=== PATIENT | male | born 1940 | race Hispanic/Latino ===

== ENCOUNTER 2018-06-23 14:32 | Inpatient (IN) | payer OTHER, MEDICARE ==
[2018-06-23] MEDS ORDERED: TDAP Vaccine 0.5 mL Syr IM ONE (14:54)
--- NOTE | 2018-06-23 15:02 | ED PDOC ---
Arrival/HPI - General Chief Complaint: Trauma Time Seen by Provider: 06/23/18 14:53 Historian: Patient - History of Present Illness Time/Duration: Prior to Arrival Symptom Onset: Sudden Context: Walking Associated Symptoms (Text): 77yo male, brought to Emergency room for evaluation after he fell, sustaining facial injuries. Patient states he was in the hospital getting cardiac therapy, which he states went well; patient reports he was walking outside and felt as if he was "staggering", lost his balance, and fell. Patient denies any chest pain, shortness of breath, lightheaded, weakness, numbness, tingling, or pain. PMD: Unsure Tetanus vaccination not up to date. Past Medical History - Provider Review Nursing Documentation Reviewed: Yes - Infectious Disease Hx of Infectious Diseases: None - Tetanus Immunization Tetanus Immunization: Up to Date - Cardiac Hx Cardiac Disorders: Yes Hx Atrial Fibrillation: Yes Hx Cardiac Arrhythmia: Yes Hx PR: Yes Hx Hypertension: Yes - Pulmonary Hx Respiratory Disorders: No - Neurological Hx Neurological Disorder: No - HEENT Hx HEENT Disorder: Yes Hx Cataracts: Yes - Renal Hx Renal Disorder: No - Endocrine/Metabolic Hx Endocrine Disorders: No - Hematological/Oncological Hx Blood Disorders: No - Integumentary Hx Dermatological Disorder: No - Musculoskeletal/Rheumatological Hx Musculoskeletal Disorders: Yes Hx Arthritis: Yes Hx Rheumatoid Arthritis: Yes - Gastrointestinal Hx Gastrointestinal Disorders: Yes Hx Diverticulitis: Yes - Genitourinary/Gynecological Hx Genitourinary Disorders: No - Psychiatric Hx Psychophysiologic Disorder: No Hx Substance Use: No - Past Surgical History Past Surgical History: No Previous - Surgical History Hx Cardiac Catheterization: Yes Hx Coronary Stent: Yes Hx Open Heart Surgery: Yes - Anesthesia Hx Anesthesia Reactions: No Hx Malignant Hyperthermia: No - Suicidal Assessment Feels Threatened In Home Enviroment: No Family/Social History - Physician Review Nursing Documentation Reviewed: Yes Family/Social History: No Known Family HX Smoking Status: Former Smoker Hx Alcohol Use: No Hx Substance Use: No Hx Substance Use Treatment: No Allergies/Home Meds Allergies/Adverse Reactions: Allergies No Known Allergies Allergy (Verified 06/23/18 14:47) Home Medications: Home Meds Medication Instructions Recorded Confirmed Atorvastatin [Lipitor] 10 mg PO DAILY 06/23/18 06/23/18 Folic Acid 1 mg PO DAILY 06/23/18 06/23/18 Gabapentin [Neurontin] 300 mg PO TID 06/23/18 06/23/18 Levocetirizine Dihydrochloride 5 mg PO DAILY 06/23/18 06/23/18 [Xyzal] Methotrexate 4 tab PO Q2W 06/23/18 06/23/18 Pantoprazole Sodium [Protonix] 40 mg PO DAILY 06/23/18 06/23/18 Review of Systems - Physician Review All systems were reviewed & negative as marked: Yes - Review of Systems Eyes: absent: Vision Changes, Photophobia ENT: Other (facial injury; missing teeth) Respiratory: absent: SOB Cardiovascular: absent: Chest Pain Gastrointestinal: absent: Abdominal Pain, Vomiting Skin: Other (abrasions) Neurological: Other (head injury). absent: Focal Weakness Physical Exam Vital Signs Reviewed: Yes Vital Signs Temp Pulse Resp BP Pulse Ox 06/23/18 18:22 98 F 93 H 20 198/92 H 95 06/23/18 18:13 98 F 93 H 20 191/83 H 95 06/23/18 18:12 99 H 194/107 H 06/23/18 18:01 99 H 20 194/107 H 94 L 06/23/18 17:46 99 H 188/110 H 06/23/18 17:25 98 F 113 H 18 188/110 H 95 06/23/18 14:33 97.8 F 110 H 20 201/103 H 95 Temperature: Afebrile Blood Pressure: Normal Pulse: Regular Respiratory Rate: Normal Appearance: Positive for: Uncomfortable Pain Distress: Moderate Mental Status: Positive for: Alert and Oriented X 3 - Systems Exam Head: Present: Normocephalic Pupils: Present: PERRL Extroacular Muscles: Present: EOMI Conjunctiva: Present: Normal Ears: Present: NORMAL TM Mouth: Present: Moist Mucous Membranes, Other (fractured upper dentures with R upper gum swelling). No: Normal Lips (anterior lip swelling) Pharnyx: No: ERYTHEMA, EXUDATE, TONSILS ENLARGED Nose (External): Present: Abrasion (stellate abrasion to bridge of nose) Nose (Internal): Present: Epistaxis. No: No Active Bleeding Neck: Present: Other (in c-collar) Respiratory/Chest: Present: Clear to Auscultation, Good Air Exchange. No: Respiratory Distress, Accessory Muscle Use Cardiovascular: Present: Regular Rate and Rhythm, Normal S1, S2. No: Murmurs Abdomen: No: Tenderness, Distention, Peritoneal Signs Upper Extremity: Present: Normal Inspection, Other (multiple abrasions noted to bilateral upper extremities). No: Cyanosis, Edema Lower Extremity: Present: Normal Inspection, NORMAL PULSES, Normal ROM (FROM bilateral lower extremities), Other (non-tender hips). No: Edema Neurological: Present: GCS=15, CN II-XII Intact, Speech Normal Skin: Present: Abrasion (multiple abrasions to bilateral upper extremities) Psychiatric: Present: Alert, Oriented x 3, Normal Insight, Normal Concentration Medical Decision Making ED Course and Treatment: Impression: Multiple injuries s/p fall Plan: -- CT Head w/o contrast -- CT C-Spine w/o contrast -- CT Maxillofacial w/o contrast -- Chest X-Ray -- TDAP Booster 0.5ml IM -- Labs -- Reassess and disposition Prior Visits: Notes and results from previous visits were reviewed. Patient was last seen in the Emergency department in 2017, and was discharged home. Progress Notes: 06/23/18 16:23 CT C-spine: VERTEBRAE: No fracture. Normal alignment. No destructive bony lesion. DISCS/SPINAL CANAL/NEURAL FORAMINA: No significant central canal or neural foraminal stenosis. Degenerative changes primarily disc space narrowing C2-3 C5-6 and C6-7. PARASPINAL SOFT TISSUES: Unremarkable. OTHER FINDINGS: Extensive soft tissue fullness, prominence in the nasopharynx consistent with facial trauma a which is incompletely visualized on the current study. Small air-fluid levels in the sphenoid air cells. Incompletely visualized ethmoid air cell disease. IMPRESSION: No acute findings related to/accounting for the clinical presentation. Additional benign and/or incidental findings described above. 06/23/18 16:31 PROCEDURE: CT MAXILLOFACIAL BONES WITHOUT CONTRAST NASAL BONES: Bilateral nasal bone fractures. Fractures through the bony nasal septum. Associated soft tissue swelling about the nose and nasal turbinates are filled with fluid and debris. ORBITS: Unremarkable. PARANASAL SINUSES/ MASTOIDS: Air-fluid levels in both maxillary sinuses and likely related to recent trauma. Air-fluid levels in the sphenoid air cells identified. Ethmoid air cell disease also presumed to be the sequela of recent trauma. Disruption of the medial wall of the right maxillary sinus noted. In the absence of sinus surgery this is presumed to be posttraumatic. MAXILLA: Unremarkable. MANDIBLE/ TEMPOROMANDIBULAR JOINTS: Unremarkable. SKULL BASE: Unremarkable. TEMPORAL BONES: Middle ears and mastoid grossly unremarkable. OTHER FINDINGS: Blood, fluid identified in the nasopharynx and oropharynx. IMPRESSION: Comminuted fractures through the nasal bones bilaterally. Fracture line identified with the bony nasal septum. Blood fluid levels identified in the maxillary sinuses bilaterally, possible fracture through the medial wall of the right maxillary sinus. No abnormalities with respect to the orbits or globes/retro Conal structures. Extraocular muscles are unremarkable. 06/23/18 16:48 CT Head w/o contrast FINDINGS: HEMORRHAGE: No intracranial hemorrhage. BRAIN: No mass effect or edema. Cortical and cerebellar atrophy, periventricular small vessel disease. Incidental finding(s): Focal area of increased attenuation in the right frontoparietal gyrus likely benign and dystrophic. VENTRICLES: Unremarkable. No hydrocephalus. CALVARIUM: Unremarkable. PARANASAL SINUSES: Unremarkable as visualized. No significant inflammatory changes. MASTOID AIR CELLS: Unremarkable as visualized. No inflammatory changes. OTHER FINDINGS: Nasopharyngeal and facial findings described in greater detail in the CT of the maxillofacial region. IMPRESSION: No acute intracranial abnormalities. No significant findings to account for the clinical presentation. Chest X-ray: FINDINGS: LUNGS: No active pulmonary disease. PLEURA: No significant pleural effusion identified, no pneumothorax apparent. CARDIOVASCULAR: No radiographic findings to suggest acute or significant cardiovascular disease. OSSEOUS STRUCTURES: No significant abnormalities. VISUALIZED UPPER ABDOMEN: Normal. OTHER FINDINGS: None. IMPRESSION: No active disease. No significant interval change compared to the prior examination(s). 06/23/18 16:49 Case discussed with ENT corporate communications associate, who recommends Afrin and packing if bleeding continues. Patient continues to deny pain. Case discussed with Dr. Apodaca who is requesting admission. 06/23/18 17:21 B/l nasal packing placed for b/l epistaxis nd pressure dressing to nasal abrasion. No laceration to repair. Hemostasis achieved. BP medication given and tetanus updated. 06/23/18 17:37 Continues to refuse pain medication - Lab Interpretations Lab Results: 06/23/18 15:00 06/23/18 15:00 Lab Results 06/23/18 15:00: Sodium 135, Potassium 4.2, Chloride 97 L, Carbon Dioxide 26, Anion Gap 16, BUN 16, Creatinine 0.8, Est GFR ( Amer) > 60, Est GFR (Non- Af Amer) > 60, Random Glucose 106, Calcium 8.4, Total Bilirubin 2.2 H, AST 60 H , ALT 33, Alkaline Phosphatase 141 H, Troponin I < 0.01, Total Protein 6.7, Albumin 3.5, Globulin 3.1, Albumin/Globulin Ratio 1.1 06/23/18 15:00: PT 16.6 H, INR 1.45, APTT 35.7 06/23/18 15:00: WBC 11.2 H, RBC 3.34 L, Hgb 11.1 L, Hct 32.9 L, MCV 98.5, MCH 33.2, MCHC 33.7, RDW 17.0 H, Plt Count 115 L, MPV 10.0, Gran % 37.5 L, Lymph % ( Auto) 53.9 H, [place] % (Auto) 6.5 H, Eos % (Auto) 1.8, Baso % (Auto) 0.3, Gran # 4.19, Lymph # (Auto) 6.0 H, [place] # (Auto) 0.7 H, Eos # (Auto) 0.2, Baso # (Auto ) 0.03 - RAD Interpretation Radiology Orders: 06/23/18 14:53 CERVICAL SPINE W/O CONTRAST [CT] Stat HEAD W/O CONTRAST [CT] Stat MAXILLOFACIAL W/O CONTRAST [CT] Stat 06/23/18 14:54 CHEST PORTABLE [RAD] Stat - Medication Orders Current Medication Orders: Clonidine HCl (Catapres) 0.2 mg PO TID PRN PRN Reason: for SBP >160 Last Admin: 06/23/18 19:37 Dose: 0.2 mg MAR Pulse and Blood Pressure Document 06/23/18 19:37 RDS (Rec: 06/23/18 19:37 RDS [facility] [id number]) Pulse Pulse Rate (60-90) 94 Blood Pressure Blood Pressure (100/60-150/90) 179/85 Gabapentin (Neurontin) 300 mg PO TID BRYAN PRN Reason: Protocol Metoprolol Succinate (Toprol Xl) 50 mg PO BRK [facility] Last Admin: 06/23/18 19:37 Dose: 50 mg MAR Pulse and Blood Pressure Document 06/23/18 19:37 RDS (Rec: 06/23/18 19:37 RDS [facility] [id number]) Pulse Pulse Rate (60-90) 94 Blood Pressure Blood Pressure (100/60-150/90) 179/85 Discontinued Medications Amoxicillin/Clavulanate Potassium (Augmentin 875 Mg-125 Mg Tab) 1 tab PO STAT STA PRN Reason: Protocol Stop: 06/23/18 17:02 Last Admin: 06/23/18 17:47 Dose: 1 tab Diltiazem HCl (Cardizem) 5 mg IVP ONCE ONE Stop: 06/23/18 22:44 Diltiazem HCl (Cardizem) 10 mg IVP ONCE ONE Stop: 06/23/18 22:44 Metoprolol Succinate (Toprol Xl) 50 mg PO BRK BRYAN Metoprolol Tartrate (Lopressor) 5 mg IVP STAT STA Stop: 06/23/18 17:31 Last Admin: 06/23/18 17:46 Dose: 5 mg IVP Administration Document 06/23/18 17:46 SRE (Rec: 06/23/18 17:47 SRE [id number]) Charges for Administration # of IVP Administrations 1 MAR Pulse and Blood Pressure Document 06/23/18 17:46 SRE (Rec: 06/23/18 17:47 SRE [id number]) Pulse Pulse Rate (60-90) 99 Blood Pressure Blood Pressure (100/60-150/90) 188/110 Metoprolol Tartrate (Lopressor) 5 mg IVP STAT STA Stop: 06/23/18 18:02 Last Admin: 06/23/18 18:12 Dose: 5 mg IVP Administration Document 06/23/18 18:12 SRE (Rec: 06/23/18 18:13 SRE [id number]) Charges for Administration # of IVP Administrations 1 MAR Pulse and Blood Pressure Document 06/23/18 18:12 SRE (Rec: 06/23/18 18:13 SRE [id number]) Pulse Pulse Rate (60-90) 99 Blood Pressure Blood Pressure (100/60-150/90) 194/107 Morphine Sulfate (Morphine) 2 mg IVP STAT STA Stop: 06/23/18 15:20 Last Admin: 06/23/18 16:08 Dose: Oxymetazoline HCl (Afrin 0.05%) 2 ml NS STAT STA Stop: 06/23/18 16:46 Last Admin: 06/23/18 16:45 Dose: 1 bottle Pneumococcal Polyvalent Vaccine (Pneumovax 23 Vaccine) 0.5 ml IM .ONCE ONE Stop: 06/23/18 22:20 Tetanus/Reduced Diphtheria/Acell Pertussis (Boostrix Vaccine Inj) 0.5 ml IM .ONCE ONE Stop: 06/23/18 14:55 Last Admin: 06/23/18 15:08 Dose: 0.5 ml MAR Immunization Data Document 06/23/18 15:08 [facility] (Rec: 06/23/18 15:09 [facility] [id number]) Immunization Data Vaccine Information Sheet Given Yes Immunization Registry Document 06/23/18 15:08 SRE (Rec: 06/23/18 15:09 [facility] [id number]) Immunization Registry Consent Date 09/16/17 - Scribe Statement The provider has reviewed the documentation as recorded by the Rian Nassar Provider Scribe Attestation: All medical record entries made by the Scribe were at my direction and personally dictated by me. I have reviewed the chart and agree that the record accurately reflects my personal performance of the history, physical exam, medical decision making, and the department course for this patient. I have also personally directed, reviewed, and agree with the discharge instructions and disposition. Disposition/Present on Arrival - Present on Arrival Any Indicators Present on Arrival: No History of DVT/PE: No History of Uncontrolled Diabetes: No Urinary Catheter: No History of Decub. Ulcer: No History Surgical Site Infection Following: None - Disposition Have Diagnosis and Disposition been Completed?: Yes Diagnosis: Near syncope, Nasal bone fracture Disposition: HOSPITALIZED Disposition Time: 17:02 Patient Plan: Admission Patient Problems: Current Active Problems Problem Status Onset Nasal bone fracture Acute Near syncope Acute Condition: FAIR
[2018-06-23] MEDS ORDERED: Morphine 2 mg/ml ISec IVP STA (15:19)
[2018-06-23 15:35] LABS: BASO # 0.03 K/mm3 (0.0-2.0); BASO % 0.3 % (0.0-3.0); EOS # 0.2 (0.0-0.7); EOS % 1.8 % (1.5-5.0); GRAN # 4.19 (1.4-6.5); GRAN % 37.5 % (50.0-68.0); HEMOGLOBIN 11.1 g/dL (14.0-18.0); LYMPH % 53.9 % (22.0-35.0); MEAN CELL VOLUME 98.5 fl (80.0-105.0); MEAN CORPUSCULAR HEMOGLOBIN 33.2 pg (25.0-35.0); MEAN CORPUSCULAR HGB CONC 33.7 g/dl (31.0-37.0); MONO # 0.7 (0.1-0.6); MONO % 6.5 % (1.0-6.0); RBC 3.34 10^6/uL (3.5-6.1); WHITE BLOOD COUNT 11.2 10^3/ul (4.5-11.0)
[2018-06-23 15:47] LABS: ALB/GLOB RATIO 1.1 (1.1-1.8); ALBUMIN 3.5 g/dL (3.0-4.8); CALCIUM 8.4 mg/dL (8.4-10.5); GFR NON-AFRICAN AMERICAN > 60
[2018-06-23 15:56] LABS: TROPONIN I < 0.01 ng/mL
[2018-06-23 16:02] LABS: ALT/SGPT 33 U/L (7-56); AST/SGOT 60 U/L (17-59); BLOOD UREA NITROGEN 16 mg/dL (7-21)
[2018-06-23 16:17] LABS: INR 1.45; PARTIAL THROMBOPLASTIN TIME 35.7 Seconds (25.1-36.5); PROTHROMBIN TIME 16.6 SECONDS (9.4-12.5)
--- NOTE | 2018-06-23 16:22 | CT ---
Date of service: 06/23/2018 PROCEDURE: CT Cervical Spine without contrast HISTORY: fall COMPARISON: None available. TECHNIQUE: Axial computed tomography images were obtained of the cervical spine without the use of intravenous contrast. Coronal and sagittal reformatted images were created and reviewed. Radiation dose: Total exam DLP = 379.41 mGy-cm. This CT exam was performed using one or more of the following dose reduction techniques: Automated exposure control, adjustment of the mA and/or kV according to patient size, and/or use of iterative reconstruction technique. FINDINGS: VERTEBRAE: No fracture. Normal alignment. No destructive bony lesion. DISCS/SPINAL CANAL/NEURAL FORAMINA: No significant central canal or neural foraminal stenosis. Degenerative changes primarily disc space narrowing C2-3 C5-6 and C6-7. PARASPINAL SOFT TISSUES: Unremarkable. OTHER FINDINGS: Extensive soft tissue fullness, prominence in the nasopharynx consistent with facial trauma a which is incompletely visualized on the current study. Small air-fluid levels in the sphenoid air cells. Incompletely visualized ethmoid air cell disease. IMPRESSION: No acute findings related to/accounting for the clinical presentation. Additional benign and/or incidental findings described above.
--- NOTE | 2018-06-23 16:30 | CT ---
Date of service: 06/23/2018 PROCEDURE: CT MAXILLOFACIAL BONES WITHOUT CONTRAST HISTORY: fall, obvious missing teeth COMPARISON: None available. TECHNIQUE: Contiguous axial CT images of the maxillofacial bones were obtained. Coronal and sagittal reformats were generated. Radiation dose: Total exam DLP = 855.26 mGy-cm. This CT exam was performed using one or more of the following dose reduction techniques: Automated exposure control, adjustment of the mA and/or kV according to patient size, and/or use of iterative reconstruction technique. FINDINGS: NASAL BONES: Bilateral nasal bone fractures. Fractures through the bony nasal septum. Associated soft tissue swelling about the nose and nasal turbinates are filled with fluid and debris. ORBITS: Unremarkable. PARANASAL SINUSES/ MASTOIDS: Air-fluid levels in both maxillary sinuses and likely related to recent trauma. Air-fluid levels in the sphenoid air cells identified. Ethmoid air cell disease also presumed to be the sequela of recent trauma. Disruption of the medial wall of the right maxillary sinus noted. In the absence of sinus surgery this is presumed to be posttraumatic. MAXILLA: Unremarkable. MANDIBLE/ TEMPOROMANDIBULAR JOINTS: Unremarkable. SKULL BASE: Unremarkable. TEMPORAL BONES: Middle ears and mastoid grossly unremarkable. OTHER FINDINGS: Blood, fluid identified in the nasopharynx and oropharynx. IMPRESSION: Comminuted fractures through the nasal bones bilaterally. Fracture line identified with the bony nasal septum. Blood fluid levels identified in the maxillary sinuses bilaterally, possible fracture through the medial wall of the right maxillary sinus. No abnormalities with respect to the orbits or globes/retro Conal structures. Extraocular muscles are unremarkable.
--- NOTE | 2018-06-23 16:39 | CT ---
Date of service: 06/23/2018 PROCEDURE: CT HEAD WITHOUT CONTRAST. HISTORY: head injury COMPARISON: None available. TECHNIQUE: Axial computed tomography images were obtained through the head/brain without intravenous contrast. Coronal and sagittal reconstructed images. Radiation dose: Total exam DLP = 74.77 mGy-cm. This CT exam was performed using one or more of the following dose reduction techniques: Automated exposure control, adjustment of the mA and/or kV according to patient size, and/or use of iterative reconstruction technique. FINDINGS: HEMORRHAGE: No intracranial hemorrhage. BRAIN: No mass effect or edema. Cortical and cerebellar atrophy, periventricular small vessel disease. Incidental finding(s): Focal area of increased attenuation in the right frontoparietal gyrus likely benign and dystrophic. VENTRICLES: Unremarkable. No hydrocephalus. CALVARIUM: Unremarkable. PARANASAL SINUSES: Unremarkable as visualized. No significant inflammatory changes. MASTOID AIR CELLS: Unremarkable as visualized. No inflammatory changes. OTHER FINDINGS: Nasopharyngeal and facial findings described in greater detail in the CT of the maxillofacial region. IMPRESSION: No acute intracranial abnormalities. No significant findings to account for the clinical presentation.
[2018-06-23] MEDS ORDERED: Oxymetazoline 0.05% Nasal Spray (30 ml) NS STA (16:45)
--- NOTE | 2018-06-23 16:47 | RAD ---
Date of service: 06/23/2018 HISTORY: fall COMPARISON: 03/12/2013 FINDINGS: LUNGS: No active pulmonary disease. PLEURA: No significant pleural effusion identified, no pneumothorax apparent. CARDIOVASCULAR: No radiographic findings to suggest acute or significant cardiovascular disease. OSSEOUS STRUCTURES: No significant abnormalities. VISUALIZED UPPER ABDOMEN: Normal. OTHER FINDINGS: None. IMPRESSION: No active disease. No significant interval change compared to the prior examination(s).
[2018-06-23] MEDS ORDERED: Amoxicillin-Clav 875-125 mg Tab PO STA (17:01)
[2018-06-23] MEDS ORDERED: Metoprolol 1 mg/ml Inj IVP STA ×2 (17:30→18:01)
[2018-06-23] MEDS: Metoprolol Succinate 50 mg XL Tab PO SCH (19:37)
--- NOTE | 2018-06-23 21:26 | CARD ---
APPROVED REPORT Date of service: 06/23/2018 EKG Measurement Heart [id number] <Conclusion> Sinus rhythm with premature atrial complexes Left axis deviation Minimal voltage criteria for LVH, may be normal variant Nonspecific ST and T wave abnormality Prolonged QT Abnormal ECG
[2018-06-23 22:18] VITALS: BMI 24.0
[2018-06-23] MEDS ORDERED: Pneumococcal 23-Valent Vaccine IM ONE (22:19)
[2018-06-24] MEDS ORDERED: diltiaZEM IVPB 100mg in NS 100 ML IV PRN (07:28)
[2018-06-24] MEDS: Metoprolol Succinate 50 mg XL Tab PO SCH (08:15)
--- NOTE | 2018-06-24 12:02 | CP.PCM.CON ---
History of Present Illness - History of Present Illness History of Present Illness: 77y/o male admitted to [facility] s/p [place]. Pt was leaving the hospital after being discharged from rehab facility and tripped falling injuring face. Pt broke his denture, had a CT scan performed -reviewed by me-nasal bone and septum fracture , medial wall of maxillary sinus fracture. Pt also endured multiple abrasions/ lacerations of the nose. Patient now resting comfortably in bed with family at bedside. Review of Systems - Constitutional Constitutional: As Per HPI - EENT Eyes: As Per HPI Ears: As Per HPI Nose/Mouth/Throat: As Per HPI - Cardiovascular Cardiovascular: As Per HPI - Respiratory Respiratory: As Per HPI - Gastrointestinal Gastrointestinal: As Per HPI - Musculoskeletal Musculoskeletal: As Per HPI - Integumentary Integumentary: As Per HPI - Neurological Neurological: As Per HPI - Psychiatric Psychiatric: As Per HPI - Endocrine Endocrine: As Per HPI - Hematologic/Lymphatic Hematologic: As Per HPI Past Patient History - Infectious Disease Hx of Infectious Diseases: None - Tetanus Immunizations Tetanus Immunization: Up to Date - Past Social History Smoking Status: Former Smoker - CARDIAC Hx Cardiac Disorders: Yes Hx Atrial Fibrillation: Yes Hx Cardia Arrhythmia: Yes Hx Heart Attack: Yes Hx Hypertension: Yes - PULMONARY Hx Respiratory Disorders: No - NEUROLOGICAL Hx Neurological Disorder: No - HEENT Hx HEENT Problems: Yes Hx Cataracts: Yes - RENAL Hx Chronic Kidney Disease: No - ENDOCRINE/METABOLIC Hx Endocrine Disorders: No - HEMATOLOGICAL/ONCOLOGICAL Hx Blood Disorders: No - INTEGUMENTARY Hx Dermatological Problems: No - MUSCULOSKELETAL/RHEUMATOLOGICAL Hx Musculoskeletal Disorders: Yes Hx Arthritis: Yes Hx Rheumatoid Arthritis: Yes - GASTROINTESTINAL Hx Gastrointestinal Disorders: Yes Hx Diverticulitis: Yes - GENITOURINARY/GYNECOLOGICAL Hx Genitourinary Disorders: No - PSYCHIATRIC Hx Psychophysiologic Disorder: No Hx Substance Use: No - SURGICAL HISTORY Hx Cardiac Catheterization: Yes Hx Coronary Stent: Yes Hx Open Heart Surgery: Yes - ANESTHESIA Hx Anesthesia Reactions: No Hx Malignant Hyperthermia: No Meds Allergies/Adverse Reactions: Allergies Allergy/AdvReac Type Severity Reaction Status Date / Time No Known Allergies Allergy Verified 06/23/18 14:47 - Medications Medications: Current Medications Atorvastatin Calcium (Lipitor) 10 mg PO DIN BRYAN Clonidine HCl (Catapres) 0.2 mg PO TID PRN PRN Reason: for SBP >160 Last Admin: 06/23/18 19:37 Dose: 0.2 mg Folic Acid (Folic Acid) 1 mg PO DAILY [facility] Last Admin: 06/24/18 10:47 Dose: 1 mg Gabapentin (Neurontin) 300 mg PO TID [facility] PRN Reason: Protocol Last Admin: 06/24/18 10:47 Dose: 300 mg diltiaZEM IVPB 100mg in NS (Cardizem 100mg In Ns) 100 mls @ 5 mls/hr IV .Q20H PRN; Protocol; 5 MG/HR PRN Reason: TITRATE PER MD ORDER Last Admin: 06/24/18 11:38 Dose: 5 mg/hr, 5 mls/hr Metoprolol Succinate (Toprol Xl) 50 mg PO BRK [facility] Last Admin: 06/24/18 08:15 Dose: 50 mg Pantoprazole Sodium (Protonix Ec Tab) 40 mg PO 0600 [facility] Physical Exam - Constitutional Appears: Well, Non-toxic - Head Exam Additional comments: positive ecchymosis, nasal trauma - Eye Exam Eye Exam: EOMI Pupil Exam: PERRL - ENT Exam ENT Exam: Mucous Membranes Moist Additional comments: Ears; mild blood behind TM Nose: fractured nasal bones, not displaced packed bilaterally with rapid rhino Throat: no movement of palate - Neck Exam Neck exam: Positive for: Normal Inspection - Respiratory Exam Respiratory Exam: NORMAL BREATHING PATTERN Results - Vital Signs Recent Vital Signs: Last Vital Signs Temp 98.0 F 06/24/18 05:35 Pulse 123 H 06/24/18 08:15 Resp 20 06/24/18 05:35 BP 153/86 H 06/24/18 08:15 Pulse Ox 96 06/24/18 05:35 - Labs Result Diagrams: 06/23/18 15:00 06/23/18 15:00 Labs: Laboratory Results - last 24 hr 06/24/18 10:00 Troponin I 0.05 D Assessment & Plan (1) Nasal bones, open fracture Status: Acute (2) Nasal septum fracture Status: Acute (3) Ecchymosis Status: Acute (4) Near syncope Status: Acute (5) Acute myocardial infarction Status: Active (6) Acute myocardial infarction of anterior wall Status: Active (7) Benign essential hypertension Status: Active (8) Laceration of nose Status: Acute - Assessment and Plan (Free Text) Plan: dermabond applied to outside nose after cleaning, Maintain nasal packing until Tuesday. Pt to be maintained on ABX during packing. - Date & Time Date: 06/24/18 Time: 12:00
[2018-06-24] MEDS ORDERED: Metoprolol Succinate 50 mg XL Tab PO SCH (19:10)
--- NOTE | 2018-06-24 19:39 | CON ---
DATE: 06/24/2018 NEUROLOGY CONSULTATION CHIEF COMPLAINT: Questionable syncope status post fall. HISTORY OF PRESENT ILLNESS: This is a 77-year-old man with history of AFib, [place], hypertension, rheumatoid arthritis, who is on Neurontin for neuropathic pain and Lipitor for dyslipidemia and methotrexate for rheumatoid arthritis, who had a fall after gained cardiac rehabilitation therapy. When he was walking outside, he felt, he was staggering and lost his balance and fell on his face, injuring his facial muscles. The patient broke his denture and a CT scan of the head was performed, showed no acute intracranial abnormality except for CT scan of his face, which he has some nasal bone and septal fractures at medial wall of the sinus fracture as well, which ENT is on board. Currently, he is following all commands, moving all extremities. He has nasal packing. Denies any dizziness or palpitations at this time. REVIEW OF SYSTEMS: A 14-point review of systems negative except as per the HPI. PAST MEDICAL HISTORY: As above. SOCIAL HISTORY: No illicit drug use, smoking, or EtOH abuse. ALLERGIES: NO KNOWN DRUG ALLERGIES. MEDICATIONS: Reviewed by nurse per reconciliation sheet. LABORATORY DATA: Sodium is 135, potassium 4.2, chloride 97, carbon dioxide 26. BUN of 16, creatinine 0.8. Random glucose of 106. PHYSICAL EXAMINATION: VITAL SIGNS: Temperature 98, pulse rate of 91, blood pressure 137/81, respiratory rate of 19, oxygen saturation 97% by room air. GENERAL: The patient is sitting up in bed, in no acute distress. HEENT: Head is atraumatic and normocephalic. PERRLA. Extraocular muscles intact. NECK: Supple. No JVD. No adenopathy noted. LUNGS: Clear to auscultation. No adventitious sounds. HEART: S1 and S2, regular rate and rhythm. No murmurs, rubs, or gallops. ABDOMEN: Soft, nontender, and nondistended. Bowel sounds present. EXTREMITIES: No clubbing. No cyanosis. Peripheral pulses 2+ felt bilaterally. SKIN: He has swelling and ecchymosis all over his face and swelling of the nasal bridge due to fractures of the nose. NEUROLOGIC: The patient is alert and oriented to person, place, month, and year. Speech is fluent without any errors. Cranial nerves II through XII are intact. Motor exam: Moves all extremities equally. Toes are downgoing bilaterally. Sensory exam: Decreased light touch and pinprick up to the calves bilaterally. Decreased vibration of the toes. DTRs are 2+ throughout, 1 at both knees and ankles. Toes are downgoing bilaterally. Coordination: [id number] intact. No dysmetria noted. Gait is deferred for now. IMPRESSION: This is near syncope rather than an actual syncopal event. He also is deconditioned, likely has peripheral neuropathy from underlying rheumatoid arthritis which led to his off balance. At this time, I will recommend; 1. PT/OT for rehabilitation to asses his gait and balance. 2. Monitor electrolytes and correct accordingly. 3. Orthostatic vital signs. 4. Follow up with ENT's recommendation in regards of his nasal septal fractures and nasal bone fractures. I will continue to monitor his atrial fibrillation rhythm since he was tachycardic and is status post Cardizem. At this time, continue current present medical management. Thank you for this consultation. Benson Moreland MD
--- NOTE | 2018-06-24 20:24 | HP ---
HISTORY OF PRESENT ILLNESS: The patient is a 77-year-old man with a past medical history of AFib and CAD s/ p NSTEMI who presented to [facility] ED s/p syncopal episode with resultant facial trauma. The patient was in his usual state of health until the day of presentation to the ED when he was leaving cardiac rehab. He reports a productive session in therapy and denied feeling unwell when leaving therapy. As he was walking to his car he suddenly syncopized and the next thing he recalled was waking up on the ground and being covered in blood. He denied chest pain, palpitations, headache, aura or presyncopal symptoms preceding his syncopal episode and furthermore denied bowel or bladder incontinence, tongue biting or confusion after his syncopal episode. Examination in the ED found him to be in moderate distress secondary to multiple facial trauma as well as tachycardic with a pulse in the 110s and hypertensive with a systolic blood pressure in the 200s. Imaging studies which were obtained demonstrated nasal fractures. The patient had nasal packing placed and was subsequently admitted to the telemetry camacho for continued management of nasal fractures, AFib with RVR and syncope. PAST MEDICAL HISTORY: As per HPI. PAST SURGICAL HISTORY: As per HPI. ALLERGIES: NKDA. MEDICATIONS: Protonix 40 mg p.o. daily, Lopressor 25 mg p.o. b.i.d., Methotrexate 4 tablets p.o. q. other week, Neurontin 300 mg p.o. t.i.d., Folic acid 1 mg p.o. daily and Lipitor 10 mg p.o. daily. FAMILY HISTORY: Noncontributory. SOCIAL HISTORY: The patient reports a former 60 pack-year smoking history but quit 5 years ago. He reports social alcohol use and denies illicit drug abuse. REVIEW OF SYSTEMS: A 12-point review of systems is negative except as per HPI. PHYSICAL EXAMINATION VITAL SIGNS: Temperature 98, pulse 110, blood pressure 153/86, respiratory rate 20, oxygen saturation 96% on room air. HEENT: PERRL. EOMI. No scleral icterus. No conjunctival pallor. Nasal packing in place. Bilateral periorbital ecchymosis is noted. NECK: No JVD, no bruits. LUNGS: Clear to auscultation. CARDIOVASCULAR: Tachycardic, irregularly irregular. ABDOMEN: Normoactive bowel sounds, soft, nontender, nondistended. EXTREMITIES: No edema. No joint deformities. NEUROLOGIC: Awake, alert and oriented x 3. No focal motor deficits. LABORATORY DATA: WBC of 11.2 with 37% neutrophils, hemoglobin of 11, hematocrit 33, platelets 115. Sodium 135, potassium 4.2, chloride 97, bicarb 26, BUN 16, creatinine 0.8, glucose 106. Troponin < 0.01. IMAGING STUDIES: 1. Chest x-ray demonstrates no active disease. 2. CT of the head without contrast demonstrates no acute pathology. 3. CT of the C-spine without contrast demonstrates no acute pathology. 4. CT of the maxilla and facial bones demonstrates a comminuted fracture to the nasal bones bilaterally and possible fracture to the medial wall of the right maxillary sinus. ASSESSMENT: The patient is a 77-year-old man with a past medical history of AFib and CAD s/ p NSTEMI s/p PCI with ANNETTE stent placement who was admitted s/p syncopal episode with multiple facial trauma. PLAN: 1. Syncope, etiology likely secondary to AFib with RVR. Neurological evaluation pending with Dr. Moreland. Neuroimaging reviewed. 2. AFib with RVR. The patient has been started on Cardizem drip at 5mg/hr. His ventricular rate is improving and we will restart his Metoprolol. Cardiology evaluation is pending with Dr. Hill. An initial troponin is negative and we will cycle another set of enzymes. Continue with tele monitoring. 3. CAD s/p NSTEMI s/p PCI with ANNETTE stent placement. He remains chest pain free. Resume Lipitor 10 mg p.o. daily and Toprol XL 50 mg p.o. daily. 4. Multiple facial trauma with nasal fracture. The patient remains with nasal packing in place. Evaluation with Dr. Barnett of ENT is pending. Continue with current analgesic regimen. 5. Normocytic anemia. Labs demonstrate stable H/H at the patient's baseline. 6. Prophylaxis. GI prophylaxis is not indicated as the patient is eating. DVT prophylaxis is not indicated as the patient is ambulatory. CODE STATUS: Full code. Garry Dill MD [facility]
[2018-06-25] MEDS: Pantoprazole 40 mg EC Tab PO SCH (06:31)
[2018-06-25 06:52] LABS: HEMOGLOBIN 9.6 g/dL (14.0-18.0); MEAN CELL VOLUME 97.9 fl (80.0-105.0); MEAN CORPUSCULAR HEMOGLOBIN 33.4 pg (25.0-35.0); MEAN CORPUSCULAR HGB CONC 34.2 g/dl (31.0-37.0); MEAN PLATELET VOLUME 8.3 fl (7.0-11.0); RBC 2.87 10^6/uL (3.5-6.1); RED CELL DISTRIBUTION WIDTH 17.6 % (11.5-14.5); WHITE BLOOD COUNT 10.6 10^3/ul (4.5-11.0)
[2018-06-25 07:30] LABS: BLOOD UREA NITROGEN 22 mg/dL (7-21); GFR NON-AFRICAN AMERICAN > 60
--- NOTE | 2018-06-25 08:46 | CON ---
DATE: 06/24/2018 INDICATIONS: Fall, head and facial trauma, paroxysmal atrial fibrillation. This is a 77-year-old man known to our practice who was attending cardiac rehab on Tuesday. He felt a bit fatigued, maybe a bit more than usual but, otherwise, the session was uneventful. While walking home just outside the hospital, he stumbled and fell sustaining head and facial trauma. He does not recall exactly what happened except that he recalls stumbling to the ground. He did not have chest pain, shortness of breath or palpitations. He was evaluated in the Emergency Room, found to have fractures of the nasal bones and sinus wall. CT of the head was unremarkable. His nose was packed. He had extensive ecchymoses of the face. He was admitted to Telemetry. During this period, there was paroxysmal atrial fibrillation noted. Ventricular rate was rapid. He was placed on IV Cardizem drip. During the night, he converted to sinus rhythm and the drip was discontinued. This morning, he is in sinus rhythm. He denies chest pain, shortness of breath, orthopnea, PND, vertigo, headache, shortness of breath, abdominal pain, nausea, vomiting, diarrhea, constipation, melena. PAST MEDICAL HISTORY: Notable for coronary artery disease in 2012. He presented with acute [place] and underwent emergent intervention on the LAD followed by staged intervention on the right coronary and circumflex arteries. He is subsequently followed by Dr. Hill. His cardiac status has been stable. There is a history of hypertension. He is a former smoker. He is treated for rheumatoid arthritis. There is no history of congestive heart failure, diabetes, stroke, TIA or gout. MEDICATIONS: At the time of admission include methotrexate, folic acid, Lipitor, metoprolol, gabapentin, Protonix, Xyzal. ALLERGIES: THERE ARE NO MEDICATION ALLERGIES. FAMILY HISTORY: Notable for heart disease. REVIEW OF SYSTEMS: The 10-point review of systems, otherwise, unremarkable except as noted above. SOCIAL HISTORY: He is a former smoker. He drinks alcohol on infrequent social occasions. No drug abuse. PHYSICAL EXAMINATION: GENERAL: He is a well-developed male lying in bed on Telemetry, in no acute distress. HEENT: Nasal packing and extensive facial ecchymoses evident. Mucous membranes moist. NECK: No neck vein distention, no thyromegaly, no carotid bruits. Supple. LUNG: Lung pal clear. HEART: Revealed a regular rhythm with normal first and second heart sounds. There is a soft systolic murmur along the left sternal border. ABDOMEN: Soft. Bowel sounds present. No mass, organomegaly, tenderness, rebound, guarding. No CVA tenderness. No palpable abdominal aortic aneurysm. EXTREMITIES: Revealed no cyanosis, clubbing or edema. NEUROLOGIC: Awake, alert and oriented. PSYCHIATRIC: Normal as to mood and affect. SKIN: Warm and dry. No rash or cellulitis. LABORATORY AND IMAGING: EKG demonstrated regular sinus rhythm, left axis deviation, anterior septal myocardial infarction, ST-T wave changes consistent with ischemia. CT of the cervical spine reveals no acute findings. CT of the head reveals no acute intracranial abnormalities. Maxillofacial CT reveals comminuted fractures to the nasal bones bilaterally, etc.; see report. A portable chest x-ray revealed no active disease. White count 10,600, hemoglobin 9.6, hematocrit 28.1, platelet count 67,000. Electrolytes: BUN and creatinine unremarkable. Blood sugar 106, repeat 110. LFTs mildly abnormal. Two troponins are negative. TSH is normal. IMPRESSION: John Hollis is a 77-year-old man admitted with a syncope with facial and head trauma, extensive ecchymoses of the face and fractured nasal bones and bilateral epistaxis. He is being seen by Neurology and by ENT. He had paroxysmal atrial fibrillation. It is possible that rapid atrial fibrillation is the cause for the syncopal event. At this time, I would increase his metoprolol to 50 mg b.i.d. We will check postural vital signs. I will review his old records. I will obtain an echocardiogram to evaluate his LV function. He has a history of an anterior septal myocardial infarction and coronary artery disease with stents in the LAD, right coronary artery and circumflex arteries in 2012. We will hold aspirin for the time being. He is getting folic acid, Lipitor, gabapentin, Protonix. His platelet count is low. This should be evaluated as well. He will be on Telemetry. I will follow along with you and make additional recommendations based on his clinical course. An EP evaluation may be indicated, especially if the echocardiogram demonstrates a low ejection fraction. Jamie Foley MD [facility] # [id number] MTDPrince
--- NOTE | 2018-06-25 10:06 | PN ---
SUBJECTIVE: The patient was seen and examined at bedside on telemetry camacho. Overnight he was noted to have moments of confusion but was reoriented by the nursing staff. He remains afebrile and has converted to a normal sinus rhythm. He is slightly hypertensive and his medications have been adjusted by Dr. Foley. Overall he feels ok and offers no complaints. OBJECTIVE: VITAL SIGNS: Temperature 99, pulse 75, blood pressure 162/79, respiratory rate 18, oxygen saturation 98% on room air. GENERAL: Elderly man lying in bed in no apparent distress. HEENT: PERRL, EOMI. No scleral icterus. No conjunctival pallor. Nasal packing in place. Bilateral periorbital ecchymosis is noted. NECK: No JVD, no bruits. LUNGS: Clear to auscultation. CARDIOVASCULAR: Irregularly irregular. Normal S1 and S2. Grade II/ CORA to LLSB. ABDOMEN: Normoactive bowel sounds. Soft, nontender, nondistended. EXTREMITIES: No edema. No joint deformities. NEUROLOGIC: Awake, alert and oriented x 3. No focal motor deficits. LABORATORY DATA: WBC 10.6, hemoglobin 9.6, hematocrit 28, platelets 67. Chemistry reviewed and unremarkable. ASSESSMENT: The patient is a 77-year-old man with past medical history of AFib and CAD s/p NSTEMI s/p PCI with ANNETTE stent placement who was admitted s/p syncopal episode with multiple facial trauma. PLAN: 1. Syncope, etiology likely secondary to AFib with RVR. Input from Dr. Moreland noted and greatly appreciated. Input from Dr. Foley noted and greatly appreciated. An echocardiogram is pending. 2. AFib. The patient has converted to normal sinus rhythm. His Metoprolol has been increased to 50 mg p.o. b.i.d.. Input from Dr. Foley greatly appreciated. As above, an echocardiogram is ordered and pending. 3. CAD s/p NSTEMI s/p PCI with ANNETTE stent placement. The patient remains chest pain free. Continue Lipitor 10 mg p.o. daily and Toprol-XL 50 mg p.o. b.i.d. 4. Multiple facial trauma with nasal fracture. Input from Dr. Barnett of ENT greatly appreciated. Nasal packing to remain in place and the patient will be reassessed tomorrow. Continue with Keflex as per ENT. 5. Normocytic anemia. Labs demonstrate stable H/H. 6. Rheumatoid arthritis. The patient to resume methotrexate upon discharge. 7. Prophylaxis. GI prophylaxis not indicated as the patient is eating. DVT prophylaxis not indicated as the patient is ambulatory. CODE STATUS: Full code. Garry Dill MD MTDD
[2018-06-25] MEDS: Metoprolol Succinate 50 mg XL Tab PO SCH ×2 (11:02→18:08)
[2018-06-25] MEDS ORDERED: Oxymetazoline 0.05% Nasal Spray (30 ml) NS PRN (14:50)
--- NOTE | 2018-06-25 14:50 | CP.PCM.PN ---
Subjective - Date & Time of Evaluation Date of Evaluation: 06/25/18 Time of Evaluation: 14:47 - Subjective Subjective: pt seen and examined pt doing well no further bleeding pt resting comfortably Objective - Vital Signs/Intake and Output Vital Signs (last 24 hours): Temp Pulse Resp BP Pulse Ox 98.7 F 81 19 163/90 H 98 06/25/18 11:58 06/25/18 11:58 06/25/18 11:58 06/25/18 11:58 06/25/18 06:00 Intake and Output: 06/25/18 06/25/18 06:59 18:59 Intake Total 0 Output Total 0 Balance 0 - Medications Medications: Current Medications Atorvastatin Calcium (Lipitor) 10 mg PO DIN ON LICENSE OF [facility] Last Admin: 06/24/18 17:53 Dose: 10 mg Cephalexin Monohydrate (Keflex) 250 mg PO Q6 ON LICENSE OF [facility] PRN Reason: Protocol Stop: 06/28/18 23:59 Last Admin: 06/25/18 11:02 Dose: 250 mg Clonidine HCl (Catapres) 0.2 mg PO TID PRN PRN Reason: for SBP >160 Last Admin: 06/23/18 19:37 Dose: 0.2 mg Folic Acid (Folic Acid) 1 mg PO DAILY ON LICENSE OF [facility] Last Admin: 06/25/18 11:03 Dose: 1 mg Gabapentin (Neurontin) 300 mg PO TID ON LICENSE OF [facility] PRN Reason: Protocol Last Admin: 06/25/18 13:28 Dose: Not Given Metoprolol Succinate (Toprol Xl) 50 mg PO BID ON LICENSE OF [facility] Last Admin: 06/25/18 11:02 Dose: 50 mg Pantoprazole Sodium (Protonix Ec Tab) 40 mg PO 0600 ON LICENSE OF [facility] Last Admin: 06/25/18 06:31 Dose: 40 mg - Labs Labs: 06/25/18 06:30 06/25/18 06:30 PT 16.6 SECONDS (9.4-12.5) H 06/23/18 15:00 INR 1.45 06/23/18 15:00 APTT 35.7 Seconds (25.1-36.5) 06/23/18 15:00 - Head Exam Head Exam: ATRAUMATIC, NORMAL INSPECTION - Eye Exam Pupil Exam: PERRL - ENT Exam ENT Exam: Mucous Membranes Moist Additional comments: healing abrasion/laceration nose, nasal packing removed no bleeding. no septum hematoma - Neck Exam Neck Exam: Full ROM - Respiratory Exam Respiratory Exam: NORMAL BREATHING PATTERN Assessment and Plan (1) Nasal bones, open fracture Status: Acute (2) Nasal septum fracture Status: Acute (3) Ecchymosis Status: Acute (4) Near syncope Status: Acute (5) Acute myocardial infarction Status: Active (6) Acute myocardial infarction of anterior wall Status: Active (7) Benign essential hypertension Status: Active (8) Laceration of nose Status: Acute (9) Epistaxis Status: Acute - Assessment and Plan (Free Text) Plan: saline to nose, wound care, afrin if needed for bleeding
[2018-06-26 07:33] LABS: HEMOGLOBIN 10.1 g/dL (14.0-18.0); MEAN CORPUSCULAR HEMOGLOBIN 33.2 pg (25.0-35.0); MEAN CORPUSCULAR HGB CONC 33.6 g/dl (31.0-37.0); MEAN PLATELET VOLUME 8.8 fl (7.0-11.0); RBC 3.04 10^6/uL (3.5-6.1); RED CELL DISTRIBUTION WIDTH 17.8 % (11.5-14.5); WHITE BLOOD COUNT 11.1 10^3/ul (4.5-11.0)
[2018-06-26 07:49] LABS: BLOOD UREA NITROGEN 24 mg/dL (7-21); CALCIUM 8.1 mg/dL (8.4-10.5); GFR NON-AFRICAN AMERICAN > 60
[2018-06-26] MEDS: Pantoprazole 40 mg EC Tab PO SCH (08:48)
--- NOTE | 2018-06-26 09:25 | PN ---
SUBJECTIVE: The patient was seen and examined at bedside on the telemetry camacho. No acute events overnight. He remains afebrile and hemodynamically stable. This morning he states he feels okay and offers no complaints. OBJECTIVE: VITAL SIGNS: Temperature 98.1, pulse 74, blood pressure 137/78, respiratory rate 20, oxygen saturation 96% on room air. GENERAL: No apparent distress. HEENT: PERRL, EOMI. No scleral icterus. No conjunctival pallor. Nasal packing in place with no active bleed. Bilateral periorbital ecchymoses are noted. Healing laceration to his nose is noted. NECK: No JVD. LUNGS: Clear to auscultation. CARDIOVASCULAR: Irregularly irregular. Normal S1 and S2. Grade II/ CORA to LLSB. ABDOMEN: Normoactive bowel sounds. Soft, nontender and nondistended. EXTREMITIES: No edema. No joint deformities. NEUROLOGIC: Awake, alert and oriented x 3. No focal motor deficits. LABORATORY DATA: WBC 11.1, hemoglobin 10, hematocrit 30, platelets 79. Sodium 132, potassium 3.1, chloride 96, bicarb 30, BUN 24, creatinine 1, glucose 109. ASSESSMENT: The patient is a 77-year-old man with past medical history of AFib and CAD s/p NSTEMI s/p PCI with ANNETTE stent placement who was admitted s/p syncopal episode with multiple facial trauma. PLAN: 1. Syncope, etiology likely secondary to AFib with RVR. Input from Dr. Moreland and Dr. Foley noted and appreciated. Neuroimaging reviewed and unremarkable. An echocardiogram is pending. 2. AFib. The patient remains in normal sinus rhythm. Continue Metoprolol 50 mg p.o. b.i.d. Input from Dr. Foley greatly appreciated. 3. CAD s/p NSTEMI s/p PCI with ANNETTE stent placement. The patient remains chest pain free. Continue Lipitor 10 mg p.o. daily and Metoprolol 50 mg p.o. b.i.d. 4. Multiple facial trauma with nasal fracture. Input from Dr. Funez appreciated. Continue with care as per ENT. 5. Normocytic anemia. Labs demonstrate stable H/H. 6. Rheumatoid arthritis. The patient to resume his Methotrexate upon discharge. 7. Prophylaxis. GI prophylaxis not indicated as the patient is eating. DVT prophylaxis is not indicated as the patient is ambulatory. CODE STATUS: Full code. Garry Dill MD MTDD
[2018-06-26] MEDS: Metoprolol Succinate 50 mg XL Tab PO SCH ×2 (10:29→17:26)
--- NOTE | 2018-06-26 10:43 | CARD ---
APPROVED REPORT Date of service: 06/26/2018 EXAM: Two-dimensional and M-mode echocardiogram with Doppler and color Doppler. INDICATION Syncope 2D DIMENSIONS Left Atrium (2D)3.7 (1.6-4.0cm)IVSd1.1 (0.7-1.1cm) LVDd5.0 (3.9-5.9cm)PWd1.1 (0.7-1.1cm) LVDs3.3 (2.5-4.0cm)FS (%) 34.0 % LVEF (%)62.7 (>50%) M-Mode DIMENSIONS Aortic Root3.50 (2.2-3.7cm)Aortic Cusp Exc.2.00 (1.5-2.0cm) Aortic Valve AoV Peak [id number]/Miriam Peak GR.6mmHg Mitral Valve E/A ratio0.0 TDI E/Lateral E'0.0E/Medial E'0.0 Tricuspid Valve TR Peak [id number] [id number] Peak Gr.22mmHg [id number] LEFT VENTRICLE The left ventricle is normal size. There is normal left ventricular wall thickness. The systolic function is mildly impaired. Mild inferoapical and apical septal hypokinesis is seen. RIGHT VENTRICLE The right ventricle is normal size. The right ventricular systolic function is normal. ATRIA The left atrium size is normal. The right atrium size is normal. The interatrial septum is intact with no evidence for an atrial septal defect. AORTIC VALVE The aortic valve is mildly sclerotic. No aortic regurgitation is present. There is no aortic valvular stenosis. MITRAL VALVE The mitral valve is mildly thickened. Mitral regurgitation is mild. TRICUSPID VALVE The tricuspid valve is normal in structure. There is mild tricuspid regurgitation. PULMONIC VALVE The pulmonary valve is normal in structure. GREAT VESSELS The aortic root is normal in size. The IVC is normal in size and collapses >50% with inspiration. PERICARDIAL EFFUSION There is no pleural effusion. There is no pericardial effusion. <Conclusion> Normal chamber size. Mildly reduced LV systolic function with inferoapical and apical septal hypokinesis. Mild MR and TR.
--- NOTE | 2018-06-26 11:42 | PN ---
DATE: 06/26/2018 SUBJECTIVE: The patient is seen lying in bed on telemetry. He has some discomfort due to his recent facial trauma. He denies any chest pain or dyspnea. CURRENT MEDICATIONS: Include Keflex, Lipitor, Neurontin, Protonix and Toprol-XL 50 mg b.i.d. OBJECTIVE: GENERAL: He is an elderly man, who appears somewhat uncomfortable. VITAL SIGNS: His blood pressure is 170/80 with pulse 72, respirations are 16. He is afebrile. HEENT: No JVD. Extensive facial trauma is noted. CHEST: Few scattered rhonchi. HEART: PMI in normal position with a soft systolic murmur in the left sternal border. ABDOMEN: Soft, nontender. Normoactive bowel sounds. EXTREMITIES: No edema. DIAGNOSTIC DATA: Potassium is 3.1 and it has been replaced. BUN and creatinine are 24 and 1, sodium is 132. White count 11.1, hemoglobin and hematocrit 10.1 and 30.1 with a platelet count of 79,000. IMPRESSION: 1. Recent syncope with extensive facial trauma and nasal fractures. 2. Paroxysmal atrial fibrillation, currently in sinus rhythm. 3. Recent syncope of uncertain etiology. 4. Known coronary artery disease, status post prior anteroseptal myocardial fraction with multivessel percutaneous coronary intervention. Last stress test showed no evidence of ischemia several years ago. 5. Thrombocytopenia, etiology unclear. 6. Hypertension. RECOMMENDATIONS: 1. An echocardiogram will be performed this morning and reviewed. Continue telemetry monitoring as advised. Anticoagulation will continue to be withheld given his extensive facial trauma. 2. If his left ventricular function is significantly reduced, cardiac catheterization will be planned. If his LV function is near normal, a followup stress test will be planned as initial step. Given his dramatic symptoms, electrophysiology evaluation would appear appropriate. Further recommendations will be made based upon his clinical course and the results of the above findings. We will continue to follow and make further recommendations as appropriate. Jose Hill MD
[2018-06-27] MEDS: Pantoprazole 40 mg EC Tab PO SCH (05:21)
[2018-06-27 07:34] LABS: HEMOGLOBIN 10.2 g/dL (14.0-18.0); MEAN CELL VOLUME 98.3 fl (80.0-105.0); MEAN CORPUSCULAR HEMOGLOBIN 34.7 pg (25.0-35.0); MEAN CORPUSCULAR HGB CONC 35.3 g/dl (31.0-37.0); MEAN PLATELET VOLUME 9.8 fl (7.0-11.0); RBC 2.94 10^6/uL (3.5-6.1); RED CELL DISTRIBUTION WIDTH 18.1 % (11.5-14.5); WHITE BLOOD COUNT 10.5 10^3/ul (4.5-11.0)
[2018-06-27 07:58] LABS: BLOOD UREA NITROGEN 22 mg/dL (7-21); CALCIUM 7.6 mg/dL (8.4-10.5); GFR NON-AFRICAN AMERICAN > 60
--- NOTE | 2018-06-27 08:57 | PN ---
SUBJECTIVE: The patient was seen and examined at bedside on the telemetry camacho. No acute events overnight. He remains afebrile and hemodynamically stable. The patient is pending a stress test this morning. OBJECTIVE: VITAL SIGNS: Temperature 99.4, pulse 63, blood pressure 179/62, respiratory rate 18, oxygen saturation 96% on room air. GENERAL: No apparent distress. HEENT: PERRL, EOMI. No scleral icterus. No conjunctival pallor. Bilateral periorbital ecchymoses are noted. Healing laceration to the nose is noted. NECK: No JVD. LUNGS: Clear to auscultation. CARDIOVASCULAR: Irregularly irregular. Normal S1 and S2. Grade II/ CORA to LLSB. ABDOMEN: Normoactive bowel sounds. Soft, nontender and nondistended. EXTREMITIES: No edema. No joint deformities. NEUROLOGIC: Awake, alert and oriented x 3. No focal motor deficits. LABORATORY DATA: WBC 10.5, hemoglobin 10, hematocrit 29, platelets 103. Sodium 133, potassium 3.3, chloride 98, bicarb 28, BUN 22, creatinine 0.8, glucose 102. ASSESSMENT: The patient is a 77-year-old man with a past medical history of AFib and CAD s/ p NSTEMI s/p PCI with ANNETTE stent placement who was admitted s/p syncopal episode with multiple facial trauma. PLAN: 1. Syncope, etiology likely secondary to AFib with RVR. Input from Dr. Moreland and Dr. Hill noted and appreciated. Neuroimaging reviewed. TTE reviewed. The patient is pending a stress test this morning and may likely require EP evaluation. 2. AFib. The patient remains in normal sinus rhythm. Continue Metoprolol 50 mg p.o. b.i.d. Anticoagulation remains on hold given his multiple facial trauma and recent bleed. 3. CAD s/p NSTEMI s/p PCI with ANNETTE stent placement. The patient remains chest pain free. Continue Lipitor 10 mg p.o. daily and Metoprolol 50 mg p.o. b.i.d. As above, a stress test is pending. 4. Multiple facial trauma with nasal fracture. Input from ENT greatly appreciated and the patient is s/p post removal of nasal packing. There has been no further episodes of epistaxis. He reports his pain is currently well controlled. 5. Normocytic anemia. Labs demonstrate stable H/H. 6. Rheumatoid arthritis. The patient remains on methotrexate and will resume this upon discharge. 7. Hypokalemia. We will replete. We will also check a magnesium level. 8. Hypertension. Blood pressure remains elevated. We will add Lisinopril 10 mg p.o. daily. 9. Prophylaxis. GI prophylaxis is not indicated as the patient is eating. DVT prophylaxis is not indicated as the patient is ambulatory. CODE STATUS: Full code. Garry Dill MD MTDD
[2018-06-27] MEDS: Metoprolol Succinate 50 mg XL Tab PO SCH ×2 (09:57→19:02)
[2018-06-27] MEDS ORDERED: Potassium Chloride 40 mEq/30 ml LIQ UD PO ONE (14:23)
--- NOTE | 2018-06-27 16:08 | PN ---
DATE: 06/27/2018 SUBJECTIVE: The patient is seen lying in bed on telemetry. He is currently comfortable except for some discomfort from his facial trauma. He remains in normal rhythm. CURRENT MEDICATIONS: Include Catapres p.r.n., codeine, folic acid, Lipitor, Neurontin, Protonix, Toprol-XL 50 mg b.i.d. and Zestril 10 mg daily. OBJECTIVE: GENERAL: He is an elderly man who appears comfortable at rest. VITAL SIGNS: His blood pressure 142/60 with pulse 56 and sinus, respirations are 14. He is afebrile. HEENT: Multiple facial contusions are noted. CHEST: Clear to auscultation and percussion. HEART: Normal first and second sounds with systolic murmur at left sternal border. ABDOMEN: Soft, nontender, normoactive bowel sounds. EXTREMITIES: No edema. DIAGNOSTIC DATA: Potassium is 3.3, BUN and creatinine 22 and 0.8. White count 10.5, hemoglobin and hematocrit 10.2 and 28.9 with a platelet count of 103,000. IMPRESSION: 1. Recent syncope with extensive facial trauma and nasal fracture. 2. Paroxysmal atrial fibrillation, currently in sinus rhythm. 3. Known coronary artery disease status post remote anteroseptal myocardial infarction and multivessel percutaneous coronary intervention. 4. Thrombocytopenia, persistent. 5. Hypertension. RECOMMENDATIONS: His current medications should be continued. Additional potassium supplement will be ordered. A nuclear stress test will be performed this morning to screen for any potential ischemia. His echocardiogram yesterday showed fairly unchanged finding with mildly reduced LV systolic function and hepatic congestion with his previous anterior myocardial infarction pattern. Anticoagulation remains on hold despite his recent atrial fibrillation given his facial trauma. If he is found to be ischemic on stress testing, cardiac catheterization will be planned. If there is no evidence of this, consideration will be given to electrophysiology evaluation given his dramatic symptoms. We will continue to follow and make further recommendations as appropriate. Jose Hill MD
--- NOTE | 2018-06-27 22:50 | CARD ---
APPROVED REPORT Date of service: 06/27/2018 Protocol: NELYAN Test Type: Lexiscan Sestamibi Stress Test Attending Physician: Dr. Jose Hill Referring Physician: Dr. Jesse Dill Test Indications: Syncope Height:5 ft 6 in Weight:150lbs Medications: lipitor, catapres, codeine, folic acid, neurintin, zestril, torprol, oxymetazoline, protonix Medical History: 77year old male with a h/o htn and high cholesterol Target HR: 143 bpm Resting ECG: non-specific st-t changes Resting Heart Rate: 56 bpm Resting Blood Pressure: 152/70mmHg Submaximum (85%): 122 bpm PROCEDURE Pharmacologic stress testing was performed using 0.4mg per 5ml of regadenoson given intravenously over 7-10 seconds. POST EXERCISE Reason for Termination: Protocol completed Target HR: No Max HR: 52 bpm 50% of Maximum Predicted HR: 143 bpm Exercise duration: 00:31 min:sec, 0 Stage Exercise capacity: 1.0METs Max Blood Pressure: 152/70mmHg Blood Pressure response to exercise: resting hypertension - appropriate response Heart Rate response to exercise: appropriate Chest Pain: No, none Angina index: 0 Arrhythmia: Yes, atrial premature beats-isolated ST Change: No, none Deviation: 0 mm TEST SUMMARY [id number]. INFUSIONDOSE 100:[id number]/.[id number]. [id number]. INTERPRETATION Stress EKG Conclusion: Normal infusion phase of Lexiscan NST. Signed by Jose Hill Electronically Approved: 06/27/2018 12:25:35 EXAM: Myocardial Perfusion REST/STRESS Stress Test Type: Pharmacologic Imaging Protocol Rest Spect myocardial perfusion imaging was performed in supine position 45 minutes following the injection of 10.3 mCi of Tc-99 Myoview. At peak stress, the patient was injected intravenously with 30.2mCi of Tc-99 tetrofosmin after an infusion time of 0 minutes and 10 seconds. Gated Stress Spect was performed 65 minutes after intravenous Tc-99 Myoview injection. The images were gated to evaluate regional wall motion and calculate ventricular ejection fraction.Images were reconstructed using backfilter projection method in short horizontal and verticle long axis. Spect slices were generated. LV Perfusion The quality of the study is good. The left ventricle is normal in size. The right ventricle is unremarkable. The lung uptake is normal. The distribution of tracer reveals mildly to moderately decreased perfusion involving mid to distal anteroseptal and apical campos on the stress study. The remainder of the LV myocardium is unremarkable. The rest myocardial perfusion study shows no significant change. Wall Motion Wall motion study shows good contractility of the left ventricle. LVEF = 63%. Conclusion 1. Abnormal SPECT myocardial perfusion study. 2. Fixed, anteroseptal and apical defects are suggestive of myocardial injury/infarct. 3. Normal gated wall motion of the left ventricle.
[2018-06-28] MEDS: Pantoprazole 40 mg EC Tab PO SCH (05:03)
[2018-06-28 06:09] VITALS: RESP 20
[2018-06-28 07:12] LABS: HEMOGLOBIN 9.9 g/dL (14.0-18.0); MEAN CELL VOLUME 99.3 fl (80.0-105.0); MEAN CORPUSCULAR HEMOGLOBIN 33.2 pg (25.0-35.0); MEAN CORPUSCULAR HGB CONC 33.4 g/dl (31.0-37.0); MEAN PLATELET VOLUME 10.1 fl (7.0-11.0); RBC 2.98 10^6/uL (3.5-6.1); RED CELL DISTRIBUTION WIDTH 18.1 % (11.5-14.5); WHITE BLOOD COUNT 10.6 10^3/ul (4.5-11.0)
[2018-06-28 07:34] LABS: BLOOD UREA NITROGEN 27 mg/dL (7-21); GFR NON-AFRICAN AMERICAN > 60
--- NOTE | 2018-06-28 08:50 | PN ---
SUBJECTIVE: The patient was seen and examined at bedside on the telemetry camacho. No acute events overnight. He remains afebrile, hemodynamically stable and chest pain free. This morning the patient states he feels okay and offers no complaints. OBJECTIVE: VITAL SIGNS: Temperature 98.3, pulse 54, blood pressure 153/76, respiratory rate 20, oxygen saturation 94% on room air. GENERAL: No apparent distress. HEENT: PERRL, EOMI. No scleral icterus. No conjunctival pallor. Bilateral periorbital ecchymoses are noted and healing laceration to the nose is noted. NECK: No JVD. LUNGS: Clear to auscultation. CARDIOVASCULAR: Regular rate and rhythm. Normal S1, S2. Grade II/ CORA to LLSB. ABDOMEN: Normoactive bowel sounds. Soft, nontender, nondistended. EXTREMITIES: No edema. No joint deformities. NEUROLOGIC: Awake, alert and oriented x 3. No focal motor deficits. LABORATORY DATA: WBC 10.6, hemoglobin 9.9, hematocrit 29, platelets 137. Chemistry reviewed and unremarkable. DIAGNOSTIC STUDIES: Nuclear stress test demonstrated fixed anteroseptal and apical defects suggestive of myocardial injury. ASSESSMENT: The patient is a 77-year-old man with a past medical history of AFib and CAD s/ p NSTEMI s/p PCI with ANNETTE stent placement who was admitted s/p syncopal episode with multiple facial trauma. PLAN: 1. Syncope, etiology likely secondary to atrial fibrillation with RVR. Input from Dr. Moreland and Dr. Hill noted and appreciated. Workup remains ongoing. 2. Atrial fibrillation. The patient remains in normal sinus rhythm. Continue Metoprolol 50 mg p.o. b.i.d.. Anticoagulation remains on hold given his multiple facial trauma and recent bleed. 3. CAD s/p NSTEMI s/p PCI with ANNETTE stent placement. Nuclear stress test is reviewed and fixed apical defect is noted. We will discuss with Cardiology regarding the need for possible catheterization in this patient. He remains chest pain free. Continue Lipitor 10 mg p.o. daily and Metoprolol 50 mg p.o. b.i.d. 4. Multiple facial trauma with nasal fracture, improving. Input from ENT greatly appreciated and the patient is demonstrating gradual clinical improvement. 5. Normocytic anemia. Labs demonstrate stable H/H. 6. Rheumatoid arthritis. 7. Hypertension. Blood pressure improved. Continue Metoprolol 50 mg p.o. b.i.d. and Lisinopril 10 mg p.o. daily. 8. Prophylaxis. GI prophylaxis not indicated as the patient is eating. DVT prophylaxis not indicated as the patient is ambulatory. CODE STATUS: Full code. Garry Dill MD MTDD
[2018-06-28] MEDS: Metoprolol Succinate 50 mg XL Tab PO SCH ×2 (10:48→17:46)
--- NOTE | 2018-06-28 12:34 | CP.PCM.PN ---
Subjective - Date & Time of Evaluation Date of Evaluation: 06/28/18 Time of Evaluation: 12:32 - Subjective Subjective: pt seen and examined, no further bleeding from nose, pt still having mild pain Objective - Vital Signs/Intake and Output Vital Signs (last 24 hours): Temp Pulse Resp BP Pulse Ox 98.2 F 58 L 20 150/67 94 L 06/28/18 12:00 06/28/18 12:00 06/28/18 12:00 06/28/18 12:00 06/28/18 06:00 Intake and Output: 06/28/18 06/28/18 06:59 18:59 Intake Total 417 Output Total 650 Balance -233 - Medications Medications: Current Medications Atorvastatin Calcium (Lipitor) 10 mg PO DIN [facility] Last Admin: 06/27/18 19:02 Dose: 10 mg Clonidine HCl (Catapres) 0.2 mg PO TID PRN PRN Reason: for SBP >160 Last Admin: 06/27/18 05:57 Dose: 0.2 mg Codeine Sulfate (Codeine) 30 mg PO Q6 PRN PRN Reason: Pain, Mild (1-3) Stop: 06/28/18 23:59 Last Admin: 06/25/18 15:12 Dose: 30 mg Folic Acid (Folic Acid) 1 mg PO DAILY [facility] Last Admin: 06/28/18 10:48 Dose: Not Given Gabapentin (Neurontin) 300 mg PO TID [facility] PRN Reason: Protocol Last Admin: 06/28/18 10:48 Dose: Not Given Lisinopril (Zestril) 10 mg PO DAILY [facility] Last Admin: 06/28/18 10:48 Dose: Not Given Metoprolol Succinate (Toprol Xl) 50 mg PO BID [facility] Last Admin: 06/28/18 10:48 Dose: Not Given Oxymetazoline HCl (Afrin 0.05%) 0 ml NS Q12H PRN PRN Reason: as needed for bleeding Pantoprazole Sodium (Protonix Ec Tab) 40 mg PO 0600 [facility] Last Admin: 06/28/18 05:03 Dose: 40 mg Sodium Chloride ([place] Nasal [place]) 0 ml NS QID [facility] Last Admin: 06/28/18 10:55 Dose: 2 sprays - Labs Labs: 06/28/18 06:30 06/28/18 06:30 PT 16.6 SECONDS (9.4-12.5) H 06/23/18 15:00 INR 1.45 06/23/18 15:00 APTT 35.7 Seconds (25.1-36.5) 06/23/18 15:00 - Head Exam Additional comments: ecchymosis - Eye Exam Eye Exam: EOMI Pupil Exam: NORMAL ACCOMODATION - ENT Exam ENT Exam: Mucous Membranes Moist - Neck Exam Neck Exam: Normal Inspection Assessment and Plan (1) Nasal bones, open fracture Status: Acute (2) Nasal septum fracture Status: Acute (3) Ecchymosis Status: Acute (4) Near syncope Status: Acute (5) Acute myocardial infarction Status: Active (6) Acute myocardial infarction of anterior wall Status: Active (7) Benign essential hypertension Status: Active (8) Laceration of nose Status: Acute (9) Epistaxis Status: Acute - Assessment and Plan (Free Text) Plan: continue conservative management and ocean in nose
--- NOTE | 2018-06-28 12:38 | PN ---
DATE: 06/28/2018 SUBJECTIVE: Patient is seen lying in bed on Telemetry. He is currently comfortable. He remains in sinus rhythm. He denies any chest pain or dyspnea. He has had no lightheadedness. He underwent a nuclear stress test yesterday which revealed fixed anteroseptal and apical defect consistent with his prior infarct. No ischemia was seen. Ejection fraction was normal at 63%. CURRENT MEDICATIONS: Remained Catapres p.r.n., folic acid, Lipitor, Neurontin, Protonix, Toprol-XL 50 mg b.i.d. OBJECTIVE: GENERAL: He is an elderly male who is comfortable at rest. VITAL SIGNS: Blood pressure is 152/76, pulse is 54 and sinus, respirations are 16. He is afebrile. HEENT: Extensive facial trauma is noted and unchanged. CHEST: Clear to auscultation and percussion. HEART: PMI in normal position. No pathological murmurs or gallops noted. ABDOMEN: Soft, nontender. Normoactive bowel sounds. EXTREMITIES: No edema. LABORATORY DATA: Potassium 3.7, BUN and creatinine 27 and 1, white count 10.6, hemoglobin and hematocrit 9.9 and 29.6 with platelet count of 137,000. IMPRESSION: 1. Recent syncope, exact etiology unclear. No evidence of cardiac ischemia or left ventricular dysfunction on stress testing. 2. Known coronary artery disease, status post multivessel percutaneous coronary intervention, remote anterior infarct, appear stable. 3. Paroxysmal atrial fibrillation, currently in sinus rhythm. RECOMMENDATIONS: Given his dramatic presentation, age and cardiac issues, I believe further evaluation with electrophysiology study will be appropriate given his unexplained syncope. Attempts will be made to arrange this within the next 24 to 48 hours. In the meantime, his current medications will continue unchanged. We will continue to follow and make further recommendations as appropriate. Jose Hill MD
[2018-06-28 23:25] VITALS: BP 152/65; TEMP 98.2; O2SAT 95
[2018-06-29 02:12] VITALS: PULSE 56
[2018-06-29] MEDS: Pantoprazole 40 mg EC Tab PO SCH (05:24)
[2018-06-29 07:21] LABS: HEMOGLOBIN 10.7 g/dL (14.0-18.0); MEAN CELL VOLUME 99.4 fl (80.0-105.0); MEAN CORPUSCULAR HEMOGLOBIN 32.7 pg (25.0-35.0); MEAN CORPUSCULAR HGB CONC 32.9 g/dl (31.0-37.0); RBC 3.27 10^6/uL (3.5-6.1); RED CELL DISTRIBUTION WIDTH 17.7 % (11.5-14.5); WHITE BLOOD COUNT 13.7 10^3/ul (4.5-11.0)
[2018-06-29 07:27] LABS: BLOOD UREA NITROGEN 26 mg/dL (7-21); CALCIUM 8.5 mg/dL (8.4-10.5); GFR NON-AFRICAN AMERICAN > 60
--- NOTE | 2018-06-29 07:45 | CP.PCM.PN ---
Subjective - Date & Time of Evaluation Date of Evaluation: 06/29/18 Time of Evaluation: 07:00 - Subjective Subjective: Stable on 2R. To be transferred to [facility] for EP evaluation V/S noted. RSR/SB 56 - 68 BPM PE: Lungs: clear Cor.: S1S2 Abd.: soft Ext.:no edema Neuro.: alert I/O = 240/700 Labs noted. Echo noted. Mild LVD with inf-apical, apical-septal HK. EF = 63% Nuclear stress test noted: Fixed A-S, apical defects, EF = 63% Objective - Vital Signs/Intake and Output Vital Signs (last 24 hours): Temp Pulse Resp BP Pulse Ox 98.2 F 56 L 20 152/65 H 95 06/28/18 23:24 06/29/18 02:00 06/28/18 23:24 06/28/18 23:24 06/28/18 23:24 Intake and Output: 06/29/18 06/29/18 06:59 18:59 Intake Total 0 Output Total 500 Balance -500 - Medications Medications: Current Medications Atorvastatin Calcium (Lipitor) 10 mg PO DIN [facility] Last Admin: 06/28/18 17:46 Dose: 10 mg Clonidine HCl (Catapres) 0.2 mg PO TID PRN PRN Reason: for SBP >160 Last Admin: 06/27/18 05:57 Dose: 0.2 mg Folic Acid (Folic Acid) 1 mg PO DAILY [facility] Last Admin: 06/28/18 13:30 Dose: 1 mg Gabapentin (Neurontin) 300 mg PO TID [facility] PRN Reason: Protocol Last Admin: 06/28/18 17:35 Dose: Not Given Lisinopril (Zestril) 10 mg PO DAILY [facility] Last Admin: 06/28/18 13:29 Dose: 10 mg Metoprolol Succinate (Toprol Xl) 50 mg PO BID [facility] Last Admin: 06/28/18 17:46 Dose: 50 mg Oxymetazoline HCl (Afrin 0.05%) 0 ml NS Q12H PRN PRN Reason: as needed for bleeding Pantoprazole Sodium (Protonix Ec Tab) 40 mg PO 0600 [facility] Last Admin: 06/29/18 05:24 Dose: Not Given Sodium Chloride ([place] Nasal [place]) 0 ml NS QID [facility] Last Admin: 06/28/18 21:16 Dose: 2 sprays - Labs Labs: 06/29/18 06:30 06/29/18 06:30 PT 16.6 SECONDS (9.4-12.5) H 06/23/18 15:00 INR 1.45 06/23/18 15:00 APTT 35.7 Seconds (25.1-36.5) 06/23/18 15:00 Assessment and Plan - Assessment and Plan (Free Text) Assessment: Syncope with facial and head trauma, fx. nasal bones and wall of sinus PAF CAD/remote DC and PCI HBP RA Former Smoker Plan: Transfer to [facility] today for EP evaluation. Additional recs to follow: EP study, ICD, A/C issues to be determined. ENT tx and f/u
--- NOTE | 2018-06-29 12:06 | DS ---
ADMISSION DIAGNOSIS: Syncope with resultant facial trauma with nasal fracture. DISCHARGE DIAGNOSIS: Syncope likely secondary to AFib with RVR with resultant multiple facial trauma and nasal fracture. SECONDARY DIAGNOSES: AFib, CAD s/p NSTEMI s/p PCI with ANNETTE stent placement, normocytic anemia, rheumatoid arthritis and hypertension. CONSULTATIONS: Dr. Barnett (ENT), Dr. Hill (Cardiology) and Dr. Moreland (Neurology). IMAGING STUDIES: 1. Chest x-ray demonstrated no active disease. 2. CT of the head without contrast demonstrated no acute intracranial pathology. 3. CT of the cervical spine without contrast demonstrated no acute pathology. 4. CT of the maxilla without contrast demonstrated comminuted fractures through the nasal bones bilaterally with fracture of the nasal septum and possible fracture through the medial wall of the right maxillary sinus. DIAGNOSTIC STUDIES 1. TTE demonstrated mildly reduced left ventricular systolic function with anteroapical and apical septal hypokinesis. 2. Nuclear stress test demonstrated fixed anteroseptal and apical defects suggestive of ischemia (unchanged from prior). PROCEDURES: None. HISTORY OF PRESENT ILLNESS: The patient is a 77-year-old man with past medical history of AFib and CAD s/p NSTEMI s/p PCI with ANNETTE stent placement who presented to [facility] ED s/p syncopal episode with resultant facial trauma. The patient was in his usual state of health until the day of presentation to the ED when he was leaving cardiac rehab. He reports a productive session in therapy and denied feeling unwell when leaving. As he was walking to his car he suddenly syncopized and the next thing he recalled is waking up on the ground and being covered in blood. He denied chest pain, palpitations, headache or presyncopal symptoms preceding his fall and furthermore denied bowel or bladder incontinence , tongue biting or confusion after his syncopal episode. Examination in the ED found him to be in moderate distress secondary to multiple facial trauma as well as tachycardic with pulse in the 110s and hypertensive with systolic blood pressure in the 200s. Imaging studies which were obtained demonstrated nasal fractures. Nasal packing was placed and he was subsequently admitted to the telemetry camacho for continued management of nasal fractures, AFib with RVR and workup of syncope. HOSPITAL COURSE: Upon admission to the telemetry camacho the patient was evaluated by Dr. Barnett of ENT and recommendations were made to maintain the nasal packing in place. The patient was also started on prophylactic antibiotics given his epistaxis. The patient was also evaluated by Dr. Foley and was initially placed on a Cardizem drip for AFib with RVR. After 12 hours he converted to normal sinus rhythm and remained in a normal sinus rhythm for the remainder of his hospital stay. He underwent an echocardiogram which was essentially unchanged from prior and had a nuclear stress testing so as to rule out ischemia as a precipitating factor of his AFib with RVR. After an exhaustive cardiac workup, the etiology of his AFib with RVR was yet to be determined and the patient was advised that he will likely require an EP evaluation. After conferring with the patient and his family, he was agreeable for further cardiac testing. Arrangements were made for transfer to [facility] for EP evaluation. On hospital day #5, the patient was cleared for transfer to [facility]. CONDITION: Fair, improved. DISPOSITION: The patient was transferred to [facility]. DISCHARGE MEDICATIONS: Protonix 40 mg p.o. daily, Lopressor 50 mg p.o. b.i.d., Folic acid 1 mg p.o. daily, Lipitor 10 mg p.o. daily, Lisinopril 10 mg p.o. daily, Neurontin 300 mg p.o. t.i.d. and Methotrexate 4 tablets p.o. every other week. FOLLOWUP: The patient will follow up with his PMD within 1 week of discharge. The patient to follow up with Dr. Hill as scheduled. Garry Dill MD [facility]
== END 2018-06-29 08:12 | disposition short-term general hospital (02) | DRG 309 ==
LOC: ED 14:32 → ERH 16:57 → 2RSO 18:27
PROVIDERS: ADMIT Internal Medicine; ATTEND Internal Medicine
DX: I48.0 Paroxysmal atrial fibrillation (principal); S02.2XXB Fracture of nasal bones, initial encounter for open fracture; S02.2XXA Fracture of nasal bones, initial encounter for closed fracture; W01.0XXA Fall on same level from slipping, tripping and stumbling without subsequent striking against object, initial encounter; I25.10 Atherosclerotic heart disease of native coronary artery without angina pectoris; I10 Essential (primary) hypertension; M06.9 Rheumatoid arthritis, unspecified; D69.6 Thrombocytopenia, unspecified; D64.9 Anemia, unspecified; G62.9 Polyneuropathy, unspecified; E78.5 Hyperlipidemia, unspecified; Y93.01 Activity, walking, marching and hiking; Y92.89 Other specified places as the place of occurrence of the external cause; I25.2 Old myocardial infarction; Z95.5 Presence of coronary angioplasty implant and graft; Z87.891 Personal history of nicotine dependence

== ENCOUNTER 2018-06-30 17:29 | Inpatient (IN) | payer OTHER, MEDICARE ==
--- NOTE | 2018-07-01 08:03 | CP.PCM.PN ---
Subjective - Date & Time of Evaluation Date of Evaluation: 07/01/18 Time of Evaluation: 07:00 - Subjective Subjective: Stable on 2R. Transferred back from [facility] yesterday evening. He had EP evauation and EP study which did show inducible VT. A loop recorer was implanted. He feels OK but weak, unable to walk by himself, unsteady gait. No CP or SOB. V/S noted. RSR/SB 55 - 83 BPM PE: Healing facial ecchymoses Lungs: clear Cor.: S1S2 Abd.: soft Ext.: no edema Neuro.: alert Echo showed: Nl LV overall EF with EF ~ 63% and inf-apical and apical-septal HK. Mild MR and TR. Nuclear stress test: Fixed A-S, apical defects c/e CA. EF = 63% Objective - Vital Signs/Intake and Output Vital Signs (last 24 hours): Temp Pulse Resp BP Pulse Ox 97.8 F 64 20 131/61 97 07/01/18 06:00 07/01/18 06:00 07/01/18 06:00 07/01/18 06:00 07/01/18 06:00 Intake and Output: 07/01/18 07/01/18 06:59 18:59 Intake Total 0 Output Total 0 Balance 0 Assessment and Plan - Assessment and Plan (Free Text) Assessment: Syncope with facial and head trauma with Neg EP study, no inducible VT. Etiology of syncope unknown. CAD/RemoteMI/PCI PAF HBP RA Former smoker Plan: As per EP > ILR Tel. bed. Needs PT/Rehab efforts TCU eval.
[2018-07-01] MEDS: Metoprolol Succinate 100 mg XL Tab PO SCH (08:21)
[2018-07-01] MEDS: Pantoprazole 40 mg EC Tab PO SCH (10:14)
--- NOTE | 2018-07-01 13:14 | HP ---
HISTORY OF PRESENT ILLNESS: The patient is a 77-year-old man with past medical history of AFib and CAD s/p NSTEMI who initially presented to [facility] ED s/p syncopal episode with resultant facial trauma with nasal fracture. The patient was undergoing an exhaustive workup at [facility] for his syncopal episode. Arrangements were made to have the patient transferred to [facility] for an EP study as part of his syncopal workup. He was transferred and underwent an EP study which was negative for inducible VFib. He had a loop recorder implanted and was then transferred back to [facility] for continued care and PT evaluation. This morning he feels well but does endorse being tired and slightly weak. PAST MEDICAL HISTORY: As per HPI. PAST SURGICAL HISTORY: As per HPI. ALLERGIES: NKDA. MEDICATIONS: Protonix 40 mg p.o. daily, Toprol XL 100 mg p.o. daily, Lipitor 10 mg p.o. daily , lisinopril 10 mg p.o. daily, Folic acid 1 mg p.o. daily, Neurontin 300 mg p.o. t.i.d. and Methotrexate 4 tablets p.o. every other week. FAMILY HISTORY: Noncontributory. SOCIAL HISTORY: The patient reports a former 60 pack-year smoking history but quit 5 years ago. He reports social alcohol and denies illicit drug abuse. REVIEW OF SYSTEMS: A 12-point review of systems is negative except as per HPI. PHYSICAL EXAMINATION: VITAL SIGNS: Temperature 97.8, pulse 87, blood pressure 131/61, respiratory rate 18, oxygen saturation 97% on room air. GENERAL: No apparent distress. HEENT: PERRL, EOMI. No scleral icterus. No conjunctival pallor. Bilateral periorbital ecchymoses are noted (improving) and healing laceration to the nasal septum is noted. NECK: No JVD. LUNGS: Clear to auscultation. CARDIOVASCULAR: Regular rate and rhythm. Normal S1 and S2. Grade II/ CORA to LLSB. ABDOMEN: Normoactive bowel sounds. Soft, nontender, nondistended. EXTREMITIES: No edema. No joint deformities. NEUROLOGIC: Awake, alert and oriented x 3. No focal motor deficits. LABORATORY DATA: Morning labs are pending. ASSESSMENT: The patient is a 77-year-old man with past medical history of AFib and CAD s/p NSTEMI s/p PCI with ANNETTE stent placement who presented s/p syncopal episode with resultant facial trauma. PLAN: 1. Syncope, etiology likely secondary to AFib with RVR. Input from Dr. Foley greatly appreciated. EP study reviewed and negative. The patient is s/p loop recorder implantation. 2. AFib. The patient remains in normal sinus rhythm. Continue Toprol XL 100 mg p.o. daily. Will need to discuss the timing of anticoagulation in this patient. 3. CAD s/p NSTEMI s/p PCI with ANNETTE stent placement. The patient remains chest pain free. Continue Lipitor 10 mg p.o. daily and Toprol XL 100 mg p.o. daily 4. Multiple facial trauma with nasal fracture, improving. 5. Hypertension. Blood pressure controlled. Continue Toprol XL 100 mg p.o. daily and Lisinopril 10 mg p.o. daily 6. Rheumatoid arthritis. 7. Deconditioning. A PT evaluation has been ordered. 8. Prophylaxis. GI prophylaxis not indicated as the patient is eating. DVT prophylaxis not indicated as the patient is ambulatory. CODE STATUS: Full code. Garry Dill MD MTDD
--- NOTE | 2018-07-02 07:35 | CP.PCM.PN ---
Subjective - Date & Time of Evaluation Date of Evaluation: 07/02/18 Time of Evaluation: 07:00 - Subjective Subjective: Stable on 2R. Transferred back from [facility]. He had an EP evaluation and an EP study which did not show inducible VT. A loop recorder was implanted. He feels OK but weak, unable to walk by himself, unsteady gait. No CP or SOB. Some brief assisted walking yesterday. V/S noted. RSR/SB 55 - 83 BPM. One episode SVT at 130 BPM last night. Possible run of A. Flutter. PE: Healing facial ecchymoses Lungs: clear Cor.: S1S2 Abd.: soft Ext.: no edema Neuro.: alert AM labs pending. Echo showed: Nl LV overall EF with EF ~ 63% and inf-apical and apical-septal HK. Mild MR and TR. Nuclear stress test: Fixed A-S, apical defects c/w AK. EF = 63% Objective - Vital Signs/Intake and Output Vital Signs (last 24 hours): Temp Pulse Resp BP Pulse Ox 98 F 61 20 144/65 99 07/02/18 06:00 07/02/18 06:00 07/02/18 06:00 07/02/18 06:00 07/02/18 06:00 Intake and Output: 07/02/18 07/02/18 06:59 18:59 Intake Total 600 Output Total 1200 Balance -600 - Medications Medications: Current Medications Atorvastatin Calcium (Lipitor) 10 mg PO DIN [facility] Last Admin: 07/01/18 17:21 Dose: 10 mg Folic Acid (Folic Acid) 1 mg PO DAILY [facility] Last Admin: 07/01/18 10:15 Dose: 1 mg Gabapentin (Neurontin) 300 mg PO TID [facility] PRN Reason: Protocol Last Admin: 07/01/18 17:23 Dose: Not Given Lisinopril (Zestril) 10 mg PO DAILY [facility] Last Admin: 07/01/18 10:15 Dose: 10 mg Metoprolol Succinate (Toprol Xl) 100 mg PO BRK [facility] Last Admin: 07/01/18 08:21 Dose: 100 mg Pantoprazole Sodium (Protonix Ec Tab) 40 mg PO DAILY [facility] Last Admin: 07/01/18 10:14 Dose: 40 mg Assessment and Plan - Assessment and Plan (Free Text) Assessment: Syncope with facial and head trauma with Neg EP study, no inducible VT. Etiology of syncope unknown, possible due to AF/A. Flutter with RVR. CAD/RemoteMI/PCI PAF HBP RA Former smoker Plan: AM labs pending. As per EP > ILR in place Tel. bed. Check postural V/S. Needs PT/Rehab efforts TCU eval.
[2018-07-02 07:36] LABS: BASO # 0.06 K/mm3 (0.0-2.0); BASO % 0.7 % (0.0-3.0); EOS # 0.2 (0.0-0.7); EOS % 2.2 % (1.5-5.0); GRAN # 2.22 (1.4-6.5); GRAN % 26.9 % (50.0-68.0); LYMPH # 4.8 (1.2-3.4); LYMPH % 58.5 % (22.0-35.0); MEAN CELL VOLUME 100.3 fl (80.0-105.0); MEAN CORPUSCULAR HEMOGLOBIN 32.7 pg (25.0-35.0); MEAN CORPUSCULAR HGB CONC 32.6 g/dl (31.0-37.0); MONO % 11.7 % (1.0-6.0); RBC 3.06 10^6/uL (3.5-6.1); RED CELL DISTRIBUTION WIDTH 17.1 % (11.5-14.5); WHITE BLOOD COUNT 8.2 10^3/ul (4.5-11.0)
[2018-07-02 07:47] LABS: BLOOD UREA NITROGEN 20 mg/dL (7-21); CALCIUM 7.5 mg/dL (8.4-10.5); GFR NON-AFRICAN AMERICAN > 60
[2018-07-02] MEDS: Metoprolol Succinate 100 mg XL Tab PO SCH (08:50)
[2018-07-02] MEDS: Pantoprazole 40 mg EC Tab PO SCH (09:55)
--- NOTE | 2018-07-02 10:48 | CP.PCM.PN ---
Subjective - Date & Time of Evaluation Date of Evaluation: 07/02/18 Time of Evaluation: 09:00 - Subjective Subjective: Subjective: No acute events overnight. Remains afebrile, hemodynamically stable and chest- pain free. Still feels weak, tired. Objective: VITAL SIGNS: Temperature 98.8, pulse 67, blood pressure 134/71, respiratory rate 18, oxygen saturation 97% on room air. GENERAL: No apparent distress. HEENT: PERRL, EOMI. No scleral icterus. No conjunctival pallor. Bilateral periorbital ecchymoses are noted (improving) and healing laceration to the nasal septum is noted. NECK: No JVD. LUNGS: Clear to auscultation. CARDIOVASCULAR: Regular rate and rhythm. Normal S1 and S2. Grade II/ CORA to LLSB. ABDOMEN: Normoactive bowel sounds. Soft, nontender, nondistended. EXTREMITIES: No edema. No joint deformities. NEUROLOGIC: Awake, alert and oriented x 3. No focal motor deficits. LABORATORY DATA: Reviewedf ASSESSMENT: The patient is a 77-year-old man with past medical history of AFib and CAD s/p NSTEMI s/p PCI with ANNETTE stent placement who presented s/p syncopal episode with resultant facial trauma. PLAN: 1. Syncope, etiology likely secondary to AFib with RVR. Input from Dr. Foley greatly appreciated. EP study reviewed and negative. The patient is s/p loop recorder implantation. 2. AFib. The patient remains in normal sinus rhythm. Continue Toprol XL 100 mg p.o. daily. Will need to discuss the timing of anticoagulation in this patient. 3. CAD s/p NSTEMI s/p PCI with ANNETTE stent placement. The patient remains chest pain free. Continue Lipitor 10 mg p.o. daily and Toprol XL 100 mg p.o. daily 4. Multiple facial trauma with nasal fracture, improving. 5. Hypertension. Blood pressure controlled. Continue Toprol XL 100 mg p.o. daily and Lisinopril 10 mg p.o. daily 6. Rheumatoid arthritis. 7. Deconditioning. A PT evaluation pending. 8. Prophylaxis. GI prophylaxis not indicated as the patient is eating. DVT prophylaxis not indicated as the patient is ambulatory. CODE STATUS: Full code. Objective - Vital Signs/Intake and Output Vital Signs (last 24 hours): Temp Pulse Resp BP Pulse Ox 98 F 60 20 148/70 99 07/02/18 06:00 07/02/18 09:55 07/02/18 06:00 07/02/18 09:55 07/02/18 06:00 Intake and Output: 07/02/18 07/02/18 06:59 18:59 Intake Total 600 Output Total 1200 Balance -600 - Medications Medications: Current Medications Atorvastatin Calcium (Lipitor) 10 mg PO DIN [facility] Last Admin: 07/01/18 17:21 Dose: 10 mg Folic Acid (Folic Acid) 1 mg PO DAILY [facility] Last Admin: 07/02/18 09:56 Dose: 1 mg Gabapentin (Neurontin) 300 mg PO TID [facility] PRN Reason: Protocol Last Admin: 07/02/18 09:57 Dose: Not Given Lisinopril (Zestril) 10 mg PO DAILY [facility] Last Admin: 07/02/18 09:55 Dose: 10 mg Metoprolol Succinate (Toprol Xl) 100 mg PO BRK [facility] Last Admin: 07/02/18 08:50 Dose: 100 mg Pantoprazole Sodium (Protonix Ec Tab) 40 mg PO DAILY [facility] Last Admin: 07/02/18 09:55 Dose: 40 mg - Labs Labs: 07/02/18 06:30 07/02/18 06:30
[2018-07-02] MEDS ORDERED: Alum-Mag Hydrox-Simethicone Susp (30 mL) PO STA (20:46)
--- NOTE | 2018-07-03 07:29 | CP.PCM.PN ---
Subjective - Date & Time of Evaluation Date of Evaluation: 07/03/18 Time of Evaluation: 07:00 - Subjective Subjective: Stable on 2R. Transferred back from [facility]. He had an EP evaluation and an EP study which did not show inducible VT. A loop recorder was implanted. He feels OK but weak, unable to walk by himself, unsteady gait. No CP or SOB. Some brief assisted walking yesterday. V/S noted. RSR/SB 55 - 83 BPM. Hypertensive at times. No orthostatic changes. PE: Healing facial ecchymoses Lungs: clear Cor.: S1S2 Abd.: soft Ext.: no edema Neuro.: alert 07/02 labs noted. Echo showed: Nl LV overall EF with EF ~ 63% and inf-apical and apical-septal HK. Mild MR and TR. Nuclear stress test: Fixed A-S, apical defects c/w VT. EF = 63% Objective - Vital Signs/Intake and Output Vital Signs (last 24 hours): Temp Pulse Resp BP Pulse Ox 98.2 F 61 20 127/53 L 95 07/03/18 06:00 07/03/18 06:00 07/03/18 06:00 07/03/18 06:00 07/03/18 06:00 Intake and Output: 07/03/18 07/03/18 06:59 18:59 Intake Total 380 Output Total 1900 Balance -1520 - Medications Medications: Current Medications Atorvastatin Calcium (Lipitor) 10 mg PO DIN [facility] Last Admin: 07/02/18 17:45 Dose: 10 mg Clonidine HCl (Catapres) 0.1 mg PO Q8 PRN PRN Reason: for SBP above 160 Last Admin: 07/02/18 22:57 Dose: 0.1 mg Folic Acid (Folic Acid) 1 mg PO DAILY [facility] Last Admin: 07/02/18 09:56 Dose: 1 mg Gabapentin (Neurontin) 300 mg PO TID [facility] PRN Reason: Protocol Last Admin: 07/02/18 17:45 Dose: Not Given Lisinopril (Zestril) 20 mg PO DAILY [facility] Metoprolol Succinate (Toprol Xl) 100 mg PO BRK [facility] Last Admin: 07/02/18 08:50 Dose: 100 mg Pantoprazole Sodium (Protonix Ec Tab) 40 mg PO DAILY [facility] Last Admin: 07/02/18 09:55 Dose: 40 mg - Labs Labs: 07/02/18 06:30 07/02/18 06:30 Assessment and Plan - Assessment and Plan (Free Text) Assessment: Syncope with facial and head trauma with Neg EP study, no inducible VT. Etiology of syncope unknown, possible due to AF/A. Flutter with RVR. CAD/RemoteMI/PCI PAF. CHADS = 3 HBP RA Former smoker Plan: As per EP > ILR in place Tel. bed. Monitor BPs. Titrate meds. Consider A/C: increased risk b/o fall risk. Let's see how PT/Rehab TCU progresses. Needs PT/Rehab efforts TCU eval.
--- NOTE | 2018-07-03 08:36 | PN ---
SUBJECTIVE: The patient was seen and examined at bedside on the telemetry camacho. Overnight he was noted to again become confused and disoriented but was easily redirectable. This morning he feels well but continues to endorse fatigue and weakness. The patient has been evaluated by PT and recommendations have been made for TCU to which the patient is agreeable. OBJECTIVE: VITAL SIGNS: Temperature 98.2, pulse 61, blood pressure 127/53, respiratory rate 20, oxygen saturation 95% on room air. GENERAL: No apparent distress. HEENT: PERRL, EOMI. No scleral icterus. No conjunctival pallor. Improving bilateral periorbital ecchymoses are noted and a healing laceration to the nasal septum is noted. NECK: No JVD. LUNGS: Clear to auscultation. CARDIOVASCULAR: Regular rate and rhythm. Normal S1 and S2. Grade II/ CORA to LLSB. ABDOMEN: Normoactive bowel sounds. Soft, nontender and nondistended. EXTREMITIES: No edema. No joint deformities. NEUROLOGIC: Awake, alert and oriented x 3. No focal motor deficits. LABORATORY DATA: WBC 8, hemoglobin 10, hematocrit 30, platelets 188. Chemistry reviewed and unremarkable. ASSESSMENT: The patient is a 77-year-old man with a past medical history of AFib and CAD s/ p NSTEMI s/p PCI with ANNETTE stent placement who presented s/p syncopal episode with resultant facial trauma. PLAN: 1. Syncope, etiology likely secondary to AFib with RVT, resolved. Input from Dr. Foley greatly appreciated. EP study reviewed and negative. The patient is s/p loop recorder implantation. 2. AFib. The patient remains in normal sinus rhythm. Continue Toprol-XL 100 mg p.o. daily. We will need to discuss the timing of anticoagulation in this patient given his recent multiple facial trauma with severe epistaxis. 3. CAD s/p NSTEMI s/p PCI with ANNETTE stent placement. Continue Lipitor 10 mg p.o. daily and Toprol-XL 100 mg p.o. daily. 4. Multiple facial trauma with nasal fracture, improving. 5. Hypertension. Continue Toprol-XL 100 mg p.o. daily and Lisinopril 20 mg p.o. daily. 6. Rheumatoid arthritis. 7. Deconditioning. PT evaluation noted and the patient is agreeable with TCU. A consultation has been placed for TCU evaluation. 8. Prophylaxis. GI prophylaxis is not indicated as the patient is eating. DVT prophylaxis is not indicated as the patient is ambulatory. CODE STATUS: Full code. Garry Dill MD MTDPrince
[2018-07-03] MEDS: Metoprolol Succinate 100 mg XL Tab PO SCH (09:00)
[2018-07-03] MEDS: Pantoprazole 40 mg EC Tab PO SCH (09:23)
[2018-07-04 07:19] LABS: HEMOGLOBIN 10.2 g/dL (14.0-18.0); MEAN CELL VOLUME 99.7 fl (80.0-105.0); MEAN CORPUSCULAR HEMOGLOBIN 32.1 pg (25.0-35.0); MEAN CORPUSCULAR HGB CONC 32.2 g/dl (31.0-37.0); MEAN PLATELET VOLUME 8.7 fl (7.0-11.0); RBC 3.18 10^6/uL (3.5-6.1); RED CELL DISTRIBUTION WIDTH 16.3 % (11.5-14.5); WHITE BLOOD COUNT 8.4 10^3/ul (4.5-11.0)
[2018-07-04 07:29] LABS: BLOOD UREA NITROGEN 18 mg/dL (7-21); CALCIUM 7.9 mg/dL (8.4-10.5); GFR NON-AFRICAN AMERICAN > 60
[2018-07-04] MEDS: Metoprolol Succinate 100 mg XL Tab PO SCH (08:16)
--- NOTE | 2018-07-04 09:21 | PN ---
SUBJECTIVE: The patient was seen and examined at bedside on the telemetry camacho. No acute events overnight. He remains afebrile, hemodynamically stable and chest pain free. This morning he feels well overall and is eager to go home. The patient was advised that TCU may be beneficial given his deconditioned status (to which the patient was agreeable) but due to lack of bed availability he was offered [facility] or outpatient rehab. The patient, however, declines [facility] or outpatient rehab and prefers to go home with PT services at home. OBJECTIVE: VITAL SIGNS: Temperature 97.7, pulse 60, blood pressure 157/64, respiratory rate 18, oxygen saturation 96% on room air. GENERAL: No apparent distress. HEENT: PERRL, EOMI. No scleral icterus. No conjunctival pallor. Improving bilateral periorbital ecchymoses and healing laceration to the nasal septum noted. NECK: No JVD. LUNGS: Clear to auscultation. CARDIOVASCULAR: Regular rate and rhythm. Normal S1 and S2. Grade II/ CORA to LLSB. ABDOMEN: Normoactive bowel sounds, soft, nontender, nondistended. EXTREMITIES: No edema. NEUROLOGIC: Awake, alert and oriented x 3. No focal motor deficits. LABORATORY DATA: WBC 8.4, hemoglobin 10, hematocrit 32, platelets 199. Chemistry reviewed and unremarkable. ASSESSMENT: The patient is a 77-year-old man with a past medical history of AFib and CAD s/ p NSTEMI s/p PCI with ANNETTE placement who presented s/p syncopal episode with resultant facial trauma. PLAN: 1. Syncope, etiology likely secondary to AFib with RVR, resolved. Input from Dr. Foley appreciated. EP study reviewed and negative. The patient is s/p loop recorder implantation. 2. AFib. The patient remains in normal sinus rhythm. Continue Toprol XL 100 mg p.o. daily 3. CAD s/p NSTEMI s/p PCI with ANNETTE stent placement. Continue Lipitor 10 mg p.o. daily and Toprol XL 100 mg p.o. daily 4. Multiple facial trauma with nasal fracture, improving. 5. Hypertension. Continue Toprol XL 100 mg p.o. daily and Lisinopril 20 mg p.o. daily 6. Rheumatoid arthritis. 7. Deconditioning. A TCU evaluation was then placed but due to lack of bed availability the patient has opted for discharge home with services and declined subacute rehab placement. 8. Prophylaxis. GI prophylaxis not indicated as the patient is eating. DVT prophylaxis not indicated as the patient is ambulatory. CODE STATUS: Full code. Garry Dill MD MTDPrince
[2018-07-04] MEDS: Pantoprazole 40 mg EC Tab PO SCH (09:53)
[2018-07-05 00:52] VITALS: RESP 20
[2018-07-05 06:15] VITALS: TEMP 97.9; O2SAT 97
[2018-07-05 07:28] LABS: HEMOGLOBIN 10.1 g/dL (14.0-18.0); MEAN CORPUSCULAR HEMOGLOBIN 32.5 pg (25.0-35.0); MEAN CORPUSCULAR HGB CONC 32.8 g/dl (31.0-37.0); MEAN PLATELET VOLUME 8.5 fl (7.0-11.0); RBC 3.11 10^6/uL (3.5-6.1); RED CELL DISTRIBUTION WIDTH 16.4 % (11.5-14.5)
[2018-07-05] MEDS ORDERED: Magnesium Citrate Oral SOL (300 ml) PO ONE (07:35)
[2018-07-05 07:52] LABS: BLOOD UREA NITROGEN 20 mg/dL (7-21); CALCIUM 7.9 mg/dL (8.4-10.5); GFR NON-AFRICAN AMERICAN > 60
--- NOTE | 2018-07-05 08:16 | PN ---
SUBJECTIVE: The patient was seen and examined at bedside on the telemetry camacho. No acute events overnight. He remains afebrile, hemodynamically stable and chest pain free. He continues to decline placement to subacute rehab despite and states that he does want to go home with PT services at home. PHYSICAL EXAMINATION VITAL SIGNS: Temperature 97.9, pulse 60, blood pressure 130/65, respiratory rate 20, oxygen saturation 98% on room air. GENERAL: No apparent distress. HEENT: PERRL. EOMI. No scleral icterus. No conjunctival pallor. Improving bilateral periorbital ecchymosis and healing laceration to the nasal septum are noted. NECK: No JVD. LUNGS: Clear to auscultation. CARDIOVASCULAR: Regular rate and rhythm. Normal S1 and S2. Grade II/ CORA to LLSB. ABDOMEN: Normoactive bowel sounds. Soft, nontender, nondistended. EXTREMITIES: No edema. NEUROLOGIC: Awake, alert and oriented x 3. No focal motor deficits. LABORATORY DATA: CBC reviewed and unremarkable. BMP reviewed and unremarkable. ASSESSMENT: The patient is a 77-year-old man with a past medical history of AFib and CAD s/ p NSTEMI s/p PCI with stent placement who presented s/p syncopal episode with with resultant facial trauma. PLAN: 1. Syncope, etiology likely secondary to AFib with RVR, resolved. Input from Dr. Foley noted and appreciated. EP study reviewed and negative. The patient is status post loop recorder implantation. 2. AFib. The patient remains in normal sinus rhythm. Continue Toprol-XL 100 mg p.o. daily. 3. CAD s/p NSTEMI s/p PCI with ANNETTE stent placement. Continue Lipitor 10 mg p.o. daily and Toprol-XL 100 mg p.o. daily. 4. Multiple facial trauma with nasal fracture, improving. 5. Hypertension. Continue Toprol-XL 100 mg p.o. daily and Lisinopril 20 mg p.o. daily. 6. Rheumatoid arthritis. 7. Deconditioning. As per the patient request, he will be discharged home with home services in place. 8. Prophylaxis. GI prophylaxis is not indicated as the patient is eating. DVT prophylaxis not indicated as the patient is ambulatory. 9. Disposition. The patient for discharge to home today. CODE STATUS: Full code. Garry Dill MD [facility] # [id number] BRITTANI
[2018-07-05] MEDS: Pantoprazole 40 mg EC Tab PO SCH (09:17)
[2018-07-05] MEDS: Metoprolol Succinate 100 mg XL Tab PO SCH (09:17)
[2018-07-05 09:26] VITALS: BP 140/67
[2018-07-05 10:42] VITALS: PULSE 58
--- NOTE | 2018-07-05 13:09 | PN ---
DATE: 07/05/2018 SUBJECTIVE: The patient is seen lying in bed on Telemetry. He is frustrated that he has not been provided with more physical therapy assistance. He denies any chest pain, dyspnea or lightheadedness. His current medications remain folic acid, Lipitor 10 mg daily, Neurontin, Protonix 40 mg daily, Toprol-XL 100 mg daily, Zestril 20 mg daily. OBJECTIVE: GENERAL: He is a thin elderly man. VITAL SIGNS: His blood pressure is 140/76 with a pulse of 60 and sinus, respirations are 14. He is afebrile. HEENT: No JVD. CHEST: Clear to auscultation and percussion. HEART: Soft systolic murmur at left sternal border. ABDOMEN: Soft, nontender. Normoactive bowel sounds. EXTREMITIES: No edema. DIAGNOSTIC DATA: Potassium 4.2, BUN and creatinine are 20 and 1, hemoglobin and hematocrit 10.1 and 30.8 with a white count 8, platelet count 183,000. IMPRESSION: 1. Recent syncopal event, etiology unclear. Electrophysiology study was negative. A loop recorder has been implanted. 2. Paroxysmal atrial fibrillation, currently in sinus rhythm. Remains off anticoagulation given recent fall and facial trauma. 3. Coronary artery disease, status post prior myocardial infarction and multivessel PCI with unchanged stress test revealing fixed defect and preserved left ventricular function. 4. History of hypertension. 5. Rest of problems as noted. RECOMMENDATIONS: His current medications, we will continue for now. Discharge home with close outpatient followup will be arranged. If he has any recurrent symptoms, he was encouraged to present for reevaluation. Continued risk factor control is advised. Jose Hill MD [facility]
== END 2018-07-05 10:47 | disposition home health service (06) | DRG 310 ==
LOC: 2RSO 21:18
PROVIDERS: ADMIT Student in an Organized Health Care Education/Training Program; ATTEND Student in an Organized Health Care Education/Training Program
DX: I48.0 Paroxysmal atrial fibrillation (principal); I25.10 Atherosclerotic heart disease of native coronary artery without angina pectoris; I47.1 Supraventricular tachycardia; I10 Essential (primary) hypertension; R53.1 Weakness; R26.2 Difficulty in walking, not elsewhere classified; M06.9 Rheumatoid arthritis, unspecified; Z87.81 Personal history of (healed) traumatic fracture; I25.2 Old myocardial infarction; Z95.5 Presence of coronary angioplasty implant and graft; Z87.891 Personal history of nicotine dependence